=== PATIENT | female | born 1975 | race Caucasian/White ===

== ENCOUNTER 2017-05-31 12:51 | Emergency (ER) | payer MEDICAID, SELFPAY ==
[2017-05-31 12:52] VITALS: BP 129/89; PULSE 88; RESP 16; TEMP 36.1; O2SAT 98; BMI 20.2
--- NOTE | 2017-05-31 13:32 | ED.VISSUMM ---
- ER Visit Summary Date of Service: 05/31/17 Chief Complaint: Headache History of Present Illness: The patient is a 41 F for migraine headaches. States she had a headache for the last 2+ days starting on Monday. Gradual onset diffuse. Associated with photophobia and sonophobia. Denies any trauma. She is on no blood thinners. Denies any fever or neck pain. No sinus congestion. She has had 2 CAT scans last 4 years both of which were negative. This was not a thunderclap headache. There is no family history of intracranial bleeds or aneurysms. She has had similar headaches like this before with her migraines. Physical Examination: Middle-aged female sitting in a darkened room. Vital signs table and afebrile. She is in no distress. Does not look septic or toxic. HEENT exam unremarkable atraumatic. Pupils round reactive light. She is sensitive to light. No facial droop. Normal speech. Neck nontender no meningismus able to touch and chest. Lungs clear to auscultation bilaterally. Heart regular rhythm no murmur. Abdomen soft nontender. She is moving all 4 extremities. Neurovascular intact. Neurologic exam is normal. NIH is 0. Normal speech. No facial droop. External motions are intact. Bilateral 5 out of 5 sliver handler strength. Fingertip to nose within normal limits. Bilateral dorsi plantar flexion. Pxxw-[id number]-fpml within normal limits. Test Results: None Emergency Department Course and Treatment: Patient treated with IV fluids, Toradol and Phenergan. She has reportedly Benadryl allergy. Treatment Plan: Repeat exam at Disposition: Discharge Impression: Cephalgia with a history of migraines This note was generated with [employer] dictation software. It may contain incorrect words, spelling, and punctuation that were not noted in review of the chart prior to signing ED Disposition - Plan for ED Patient: Chief Complaint: Headache Referrals: Rick Conway DO [Primary Care Provider] -
--- NOTE | 2017-05-31 13:35 | ED.DCSUM_ITS ---
- ER Visit Summary Date of Service: 05/31/17 Chief Complaint: Headache History of Present Illness: The patient is a 41 F for migraine headaches. States she had a headache for the last 2+ days starting on Monday. Gradual onset diffuse. Associated with photophobia and sonophobia. Denies any trauma. She is on no blood thinners. Denies any fever or neck pain. No sinus congestion. She has had 2 CAT scans last 4 years both of which were negative. This was not a thunderclap headache. There is no family history of intracranial bleeds or aneurysms. She has had similar headaches like this before with her migraines. Physical Examination: Middle-aged female sitting in a darkened room. Vital signs table and afebrile. She is in no distress. Does not look septic or toxic. HEENT exam unremarkable atraumatic. Pupils round reactive light. She is sensitive to light. No facial droop. Normal speech. Neck nontender no meningismus able to touch and chest. Lungs clear to auscultation bilaterally. Heart regular rhythm no murmur. Abdomen soft nontender. She is moving all 4 extremities. Neurovascular intact. Neurologic exam is normal. NIH is 0. Normal speech. No facial droop. External motions are intact. 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 Fingertip to nose within normal limits. Bilateral dorsi plantar flexion. Kixa-nb-knwn within normal limits. Test Results: None Emergency Department Course and Treatment: Patient treated with IV fluids, Toradol and Phenergan. She has reportedly Benadryl allergy. Treatment Plan: Repeat exam at Disposition: Discharge Impression: Cephalgia with a history of migraines This note was generated with [employer] dictation software. It may contain incorrect words, spelling, and punctuation that were not noted in review of the chart prior to signing ED Disposition - Plan for ED Patient: Chief Complaint: Headache Referrals: Rick Conway DO [Primary Care Provider] -
--- NOTE | 2017-05-31 13:35 | ED.DEP ---
ED Disposition - Plan for ED Patient: Disposition: Home or Assisted Living Chief Complaint: Headache Instructions: ED Headache Migraine Prescriptions: Sumatriptan Succinate [Imitrex] 25 mg PO Q4H PRN PRN #10 tab PRN Reason: Migraine Symptoms Referrals: Rick Conway DO [Primary Care Provider] - 3-5 Days if not improving Additional Instructions: Fluids and rest. Tylenol and Motrin for pain. Possible migraine headaches. Return if feeling worse or not improving.
[2017-05-31] MEDS: 0.9% Normal Saline 1,000 ML 1000 ML IV (13:40)
[2017-05-31] MEDS: proMETHazine 25 MG/ML Syringe 12.5 MG IV (13:41)
[2017-05-31] MEDS: Ketorolac 30 MG/ML Syringe IV (13:41)
[2017-05-31] MEDS: SUMAtriptan 6 MG/0.5 ML Vial SC (15:02)
[2017-05-31 15:05] VITALS: BP 142/95; PULSE 61; RESP 16; O2SAT 98
--- NOTE | 2017-05-31 15:30 | NURSING ---
Addendum entered by Maria Alejandra Moody 05/31/17 15:50: made aware Original Note: pt stating throat feels funny. unsure if throat is very dry or if having a reaction to imitrex. pt no s/s of distress, given some water
--- NOTE | 2017-05-31 15:40 | ED.RN ---
pt states she is fine now and ride is here. MD alanis
== END 2017-05-31 15:50 | disposition home or self-care (01) ==
PROVIDERS: Emergency Provider Emergency Medicine; Family Provider Preventive Medicine Occupational Medicine; PCP Preventive Medicine Occupational Medicine
DX: G43.909 Migraine, unspecified, not intractable, without status migrainosus (principal); F32.9 Major depressive disorder, single episode, unspecified; Z72.0 Tobacco use
CPT/HCPCS: 96361; 96372; 96374; 96375; 99283; J7030; J3030

== ENCOUNTER 2021-03-20 23:19 | Inpatient (IN) | payer MEDICAID, SELFPAY ==
--- NOTE | 2021-03-20 20:28 | US_ITS ---
EXAM: US ABDOMEN LIMITED, RIGHT UPPER QUADRANT CLINICAL INDICATION: abdominal pain TECHNIQUE: Real-time ultrasound of the right upper quadrant with image documentation. This report was created using [employer] report generation technology. COMPARISON: Ultrasound 10/11/2011. FINDINGS: LIVER: Liver is unremarkable. There is normal echotexture. No intrahepatic biliary ductal dilation. GALLBLADDER: Multiple echogenic foci with shadowing at the gallbladder fundus. Pericholecystic fluid. Sonographic George''s sign is reported present. Gallbladder distention with gallbladder sludge present. Gallbladder wall measures 2 mm. COMMON BILE DUCT: Common bile duct is normal. The proximal common bile duct is within normal limits for the patient''s age. PANCREAS: Pancreatic tail is obscured by overlying bowel gas. No pancreatic masses. RIGHT KIDNEY: Right kidney is unremarkable. There is no hydronephrosis. No shadowing calculus. No focal lesion or perinephric collection is demonstrated. OTHER VASCULATURE: Main portal vein demonstrates normal direction of blood flow and is patent. US/Gallbladder IMPRESSION: Cholelithiasis with findings that are suspicious for acute cholecystitis. Electronically Signed: Miguel Saenz MD at 22:34 EST ,
[2021-03-20 21:05] VITALS: BP 137/86; PULSE 81; RESP 18; TEMP 36.4; O2SAT 97
[2021-03-20 21:24] VITALS: BMI 25.1
[2021-03-20] MEDS: 0.9% Normal Saline 1,000 ML 130 ML IV (21:32)
[2021-03-20] MEDS: 0.9% Saline Lock 10 ML Syringe IV (21:36)
[2021-03-20] MEDS: Ondansetron 4 MG/2 ML Vial IV (21:38)
[2021-03-20] MEDS: HYDROmorphone 0.5 MG/0.5 ML SYRINGE IV (21:41)
--- NOTE | 2021-03-20 23:16 | HP.PCM.SX_ITS ---
HPI - General General Date of Admission: 03/20/21 HPI Narrative JENNIFER MAST, is a 45 F who presents initially to [place] ER due to right upper quadrant abdominal pain/epigastric starting 2 days ago. Patient states that yesterday by pain began to get worse did not eat anything since yesterday. Patient has CT abdomen pelvis done which showed distended gallbladder and patient no white blood cell count of 11 at the outside ER. Patient was also given Cipro Flagyl IV due to likely acute cholecystitis. Patient did not have an ultrasound done to see right ear as ultrasound was unavailable at the outside ER. Ultrasound did show gallstones/sludge, distended gallbladder, small amount of pericholecystic fluid normal gallbladder wall. Currently patient states her nausea is better with medication and pain is better if she does not move. [facility] Medical History Anxiety Depression GERD (gastroesophageal reflux disease) Migraine Home Medications bupropion HCl 300 mg PO DAILY 03/20/21 [History Last Taken 03/20/21] omeprazole 40 mg PO DAILY 03/20/21 [History Last Taken 03/20/21] Allergy/AdvReac Type Severity Reaction Status Date / Time bee venom protein (honey bee) Allergy Anaphylaxis Verified 03/20/21 21:21 cephalexin monohydrate Allergy Hives Verified 05/31/17 12:53 [From Keflex] diphenhydramine HCl Allergy Hives Verified 05/31/17 12:53 [From Benadryl] Surgical History History of hysterectomy Hx of tonsillectomy Social History Smoking Status: Former smoker Vital Signs Vital Signs Vital Signs: 03/20/21 20:28 03/20/21 21:05 Temperature 97.5 F L Temperature Source Oral Pulse Rate 81 Respiratory Rate 18 Respiratory Effort Normal Non-Labored Blood Pressure 137/86 H Blood Pressure Mean 103 Blood Pressure Source Monitor Blood Pressure Position Semi-Fowlers Blood Pressure Location Right Arm Pulse Ox 97 Oxygen Delivery Method Room Air Room Air Weight Weight: 155 lb 13.869 oz Body Mass Index (BMI) 25.1 Physical Exam Const alert, oriented x3 and no apparent distress HEENT normocephalic and head/scalp atraumatic Resp normal respiratory effort Cardio regular rate GI soft to palpation; Negative for non-distended Palpation: tender epigastric and RUQ; Negative for guarding Extremity no clubbing, cyanosis or edema Neuro CN's II-XII intact bilaterally Psych mental status grossly normal Results Radiology Impression Gallbladder Ultrasound 03/20/21 20:28 IMPRESSION: Cholelithiasis with findings that are suspicious for acute cholecystitis. Electronically Signed: Miguel Saenz MD at 22:34 EST , ADDENDUM: 03/20/21 2248 IMPRESSION: Cholelithiasis with findings that are suspicious for acute cholecystitis. N.B. : Eleonora Johnson RN, confirmed on 03/20/2021 22:41:46 (ET) that the healthcare facility has received the radiology report. Electronically Signed: Miguel Saenz MD at 22:34 EST , Assessment & Plan Assessment/Plan (1) Acute cholecystitis due to biliary calculus: PLAN: -NPO/IVF -cipro/Flagyl IV -Reviewed the anatomy with the patient and discussed the procedure: laparoscopic cholecystectomy with possible cholangiograms, possible open. Review risks including but not limited to bleeding, infection, hernia, bile leak, retained gallstones requiring another procedure ERCP- Endoscopic Retrograde Cholangiopancreatography, injury to another organ (bile ducts, common bile duct, small bowel, etc.) may require transfer to a tertiary care facility and conversion to an open procedure or laparoscopic subtotal cholecystectomy. All questions were answered. Jaky Kaur M.D. Pager: [phone] [facility] [address] [place] [address], [address] [place] [address] Office: [phone]
[2021-03-20] MEDS: proCHLORPERazine 10 MG/2 ML Vial IV (23:50)
[2021-03-20 23:57] VITALS: BP 118/76; PULSE 88; RESP 18; TEMP 36.5; O2SAT 96
[2021-03-21] VITALS (18 sets, daily range): BP systolic 117–155; BP diastolic 62–96; PULSE 72–98; RESP 14–18; TEMP 36.3–37.1; O2SAT 95–99; BMI 25.1
--- NOTE | 2021-03-21 | GALL_PTH ---
PATIENT: JENNIFER MANDUJANO LOC: MS3 U#:[id number] AGE/SX: 45/F ROOM: MS317 RE03/20/[address]: Dr. Jaky Kaur MD : 1975 BED: 1 DIS: 03/22/2021 SPEC #: [id number] RECD: 03/22/21 07:37 STATUS: JATINDER RERomaine #: [id number] MARTHA: 03/21/21 00:[address]: Jaky Kaur DEPT: SURGICAL PATHOLOGY RECD BY: Raúl Gama ENTERED: 03/22/21 11:24 SP TYPE: ANGELA STARKEY DR: Dr. Nathalie Victor, DO Tissues: Gallbladder, NOS Procedures: Surgery Specimen Level III HEADER OPERATION: Laparoscopic cholecystectomy with IOC PRE-OP DIAGNOSIS: Acute cholecystitis due to biliary calculus TISSUE SUBMITTED: Gallbladder MICROSCOPIC DIAGNOSIS Gallbladder, cholecystectomy: Cholesterolosis, chronic cholecystitis and cholelithiasis. AM:amita 03/23/2021 MICROSCOPIC DESCRIPTION Slides are reviewed. GROSS DESCRIPTION Received is one container labeled with the patient's name and designated gallbladder. The specimen consists of a previously, partially opened gallbladder measuring 8 cm in length and up to 3.5 cm in diameter. The external surface is pink-walters, smooth and glistening for the most part. Focally it is granular, hemorrhagic and contains cautery artifact. The gallbladder contains green-yellow mucoid bile. Present in the container are two mulberry, light yellow stones measuring 0.1 to 0.5 cm in greatest dimension. The mucosa also shows several yellowish streaks consistent with cholesterolosis. The mucosa is bile-stained and without any mass lesions. The gallbladder wall measures up to 0.3 cm in thickness. Sales Estimator sections from the gallbladder and the cystic duct are submitted in one cassette. / SJ:amita 03/22/2021 TC:3 CPT: 04132
--- NOTE | 2021-03-21 05:00 | EKG12_ITS ---
Test Reason : AM EKG Blood Pressure : / mmHG Vent. Rate : 088 BPM Atrial Rate : 088 BPM P-R Int : 180 ms QRS Dur : 088 ms QT Int : 378 ms P-R-T Axes : 044 029 027 degrees QTc Int : 457 ms Normal sinus rhythm Normal ECG Confirmed by NARENDRA CORBETT, KJ ([id number]), telegraph editor JACKY CASAS ([id number]) on 03/23/2021 1:07:32 PM Referred By: WANG Confirmed By:KJ MACKEY MD
[2021-03-21] MEDS: 0.9% Normal Saline 1,000 ML 130 ML IV (05:03)
[2021-03-21] MEDS: metroNIDAZOLE 500 MG/100 ML BAG 100 MG IV (05:04)
[2021-03-21 06:55] LABS: Absolute Neutrophil Count 2.9 X10^3/uL (2.0-7.7); Basophil# 0.05 X10^3/uL; Eosinophil# 0.14 X10^3/uL; Eosinophils% 2.9 % (0-5); Hematocrit 34.6 % (37-47); Hemoglobin 11.4 g/dL (12.0-15.0); Lymphocyte % 26.9 % (19-41); Mean Corp Hgb Conc 32.9 g/dL (32-36); Mean Corpuscular Hgb 28.4 pg (27.0-32.0); Mean Corpuscular Volume 86.3 fL (81-99); Mean Platelet Vol. 10.7 fl (6.2-12.0); Monocyte# 0.46 X10^3/uL; Monocyte% 9.5 % (0-10); NRBC Flagged by Analyzer 0 % (0-5); Neutrophil # 2.88 X10^3/uL (2.7-7.7); Neutrophil % 59.5 % (47-70); Platelet Count 209 K/mm3 (150-450); RBC Distribution Width CV 13.4 % (11.6-14.6); RBC Distribution Width SD 42.1 fl (35.1-43.9); Red Blood Count 4.01 M/mm3 (4.2-5.4); White Blood Count 4.8 K/mm3 (4.4-11.0)
--- NOTE | 2021-03-21 07:23 | NURSING ---
Patient would like her visitor to be her daughter, Roberto Vallecillo.
[2021-03-21 07:29] LABS: AST(SGOT) 13 U/L (15-37); Alanine Aminotransfer ALT/SGPT 19 U/L (13-56); Albumin, Serum 2.9 g/dL (3.2-5.0); Alkaline Phosphatase 111 U/L (45-117); Anion Gap 5 (5-15); BUN 6 mg/dL (7-18); BUN/Creat Ratio 13.7 RATIO (10-20); Bilirubin, Direct 0.13 mg/dL (0.00-0.30); Calcium,Total 8.1 mg/dL (8.5-10.1); Chloride 113 mmol/L (98-107); Creatinine, Serum 0.44 mg/dL (0.55-1.02); EST Glomerular Filtration Rate 166 mL/min (>60); Est Glom Filt Rate - Afr Amer 200 mL/min (>60); Estimated Creatinine Clearance 152.74 ml/min; Globulin 2.6 g/dL (2.2-4.2); Glucose 87 mg/dL (74-106); Potassium 3.5 mmol/L (3.5-5.1); Protein, Total 5.5 g/dL (6.4-8.2); Sodium Level 144 mmol/L (136-145)
[2021-03-21] MEDS: Ondansetron 4 MG/2 ML Vial IV ×2 (08:06→19:48)
[2021-03-21] MEDS: HYDROmorphone 0.5 MG/0.5 ML SYRINGE IV (08:06)
[2021-03-21] MEDS: Ciprofloxacin 400 MG/200 ML BAG 200 MG IV (08:32)
--- NOTE | 2021-03-21 09:00 | RAD_ITS ---
CLINICAL HISTORY: Female, 45 years old. Abdominal pain PROCEDURE: CHOLANGIOGRAM - intraoperative FLUOROSCOPY TIME (if supplied): (0:05) minutes/seconds TECHNIQUE: (All elements of maximal sterile barrier technique followed, including US elements as applicable) 5 seconds of fluoroscopy of the abdomen was utilized and operating room during an intraoperative cholangiogram and 25 images are limited for interpretation. FINDINGS: A cannula seen within the distal cystic duct remnant. Examination the opacified biliary tree demonstrates no evidence of stricture, dilatation, or filling defect to suggest common bile duct stone. There is spillage of contrast through the ampulla into the duodenum. RAD/Cholangiogram/ O R,Initial IMPRESSION: No common bile duct stone. Electronically Signed: Cal Burch MD at 12:44 EST ,
--- NOTE | 2021-03-21 09:44 | PCM.OPRPT ---
Report of Operation Date of Procedure: 03/21/21 Pre-Operative Diagnosis: Acute cholecystitis Post-Operative Diagnosis: Same Surgery/Procedure Performed:: Laparoscopic cholecystectomy with cholangiograms Surgeon: Jaky Kaur signal operator technical: Melissa Maciel Type of Anesthesia: General/Supplemental Anesthesiologist: Binh Basilio Special Medications: Cipro 400 mg IV every 12, Flagyl 500 mg IV every 8 for acute cholecystitis Specimen's removed: Gallbladder and stones Estimated Blood Loss (mL): 20 cc Fluids Replaced: Per anesthesia Description of Procedure: Indications this is a 45 year-old female who developed abdominal pain/nausea/vomiting and on workup was found to have acute cholecystitis due to cholelithiasis, with a normal common bile duct. Laparoscopic cholecystectomy was elected. Description procedure: The patient was placed on operating table in supine position. General Anesthesia was induced. A timeout was completed verifying correct patient, procedure, site, position and special equipment prior to beginning procedure. The abdomen was prepped and draped in usual sterile fashion. An incision was made in the natural skin line above the umbilicus. The fascia was elevated and incised. The peritoneum was elevated and incised. Entry into the peritoneum was confirmed visually and no bowel was noted in the vicinity of the incision. Ramirez trocar was placed. The abdomen was insufflated with carbon dioxide to a pressure of 12-15 mmHg. Patient tolerated insufflation well. The laparoscope was then inserted and abdomen inspected. No injuries from initial trocar placement were noted. Additional trochars were then inserted in the following locations 5 mm trocar in the epigastrium and 2 more 5 mm trochars along the right costal margin. The abdomen was inspected no abnormalities were found. The table is placed in reverse Trendelenburg position with the right side up. The adhesions between the gallbladder and omentum were lysed sharply. The dome of the gallbladder was grasped with atraumatic grasper passed through the lateral port and retracted over the dome of the liver. Infundibulum was then grasped with atraumatic grasper through the midclavicular port and retracted to the right lower quadrant. This maneuver exposed Calot's triangle. The peritoneum overlying the gallbladder infundibulum was then incised and cystic duct and artery identified and circumferentially dissected. Patricio catheter was used for cholangiograms. The cholangiogram showed good filling of the common bile duct into the duodenum with no filling defects, good filling of the right and left bile ducts as well. The cystic duct and artery were then doubly clipped and divided close to the gallbladder. The gallbladder then dissected from its peritoneal attachments by electrocautery. Hemostasis was checked and the gallbladder and contained stones were removed using the endoscopic retrieval bag through the umbilical port. The gallbladder is passed off table as specimen. The gallbladder fossa was copiously irrigated with saline and hemostasis obtained. There is no evidence of bleeding from the gallbladder fossa or cystic artery leakage of bile from the cystic duct stump. Secondary trochars removed under direct vision. No bleeding was noted the trocar sites. The laparoscope was withdrawn and umbilical trocar removed. The abdomen was allowed to collapse. The fascia of the 12 mm trocar was closed with a [id number] 0 Vicryl suture. The skin was closed with sutures of 4-0 Monocryl and Steri-Strips. The orogastric tube was removed and the patient was extubated. The patient tolerated procedure well and was taken to the postanesthesia care unit in stable condition. Complications None
--- NOTE | 2021-03-21 09:54 | EX.PCM.DISCH ---
Discharge Instructions Diet Discharge Diet: Light diet - advance as tolerated Activity Discharge Activity: May Not Drive (while taking narcotic pain medications.) May shower in (days): 1 Lifting Restrictions: no lifting >20 lbs x 2 wks, no strenuous exercise for 4 wks Dressing / Incision Call your doctor if your incision/area has: Continuous Slow Oozing, Sudden Increased Bleeding, Increased Pain/ Swelling, Increased Redness, Foul Smelling Discharge and Swelling at the incision site Call your doctor if you observe: Fever of 101 or Higher Remove Dressing in: 2 days Cleanse incision/area with: Soap & Water Additional Dressing/Incision Instructions:: Steri-Strips will fall off in 7 to 10 days, if they do not fall off okay to remove after 10 days. Follow Up Care Please Follow Up With: Jaky Kaur MD When: Call the office for a follow-up appointment 2 weeks; after 5 PM and on the weekends call [phone] with any concerns. Test Results: Test results from this visit will be discussed in further detail at your follow-up appointment, if applicable. Discharge Plan Admission Admit Date/Time: 03/20/21 23:19 Attending Provider: Jaky Kaur Primary Care Provider: Nathalie Victor Discharge Orders/Prescriptions Prescriptions: New oxycodone-acetaminophen [Percocet] 5-325 mg tablet 1 - 2 tab PO Q6H PRN (Reason: pain) 3 Days Qty: 14 RF: 0 Continued omeprazole 40 mg capsule,delayed release(DR/EC) 40 mg PO DAILY RF: 0 bupropion HCl 300 mg tablet extended release 24 hr 300 mg PO DAILY RF: 0 Referrals / Follow Up: Nathalie Victor DO [Primary Care Provider] - Disposition Disposition (needs filled in before D/C Order can be placed): Home, Self Care
[2021-03-21] MEDS: Lactated Ringers 1,000 ML 125 ML IV ×2 (10:00→14:35)
[2021-03-21] MEDS: proCHLORPERazine 10 MG/2 ML Vial IV (12:40)
[2021-03-21] MEDS: oxyCODONE 5 MG Tablet PO (18:27)
[2021-03-21] MEDS: Morphine 2 MG/ML Syringe IV (19:48)
[2021-03-21] MEDS: Acetaminophen 325 MG Tablet 650 MG PO (22:26)
[2021-03-22 02:00] VITALS: RESP 16
[2021-03-22 03:54] VITALS: BP 130/86; PULSE 92; RESP 16; TEMP 36.7; O2SAT 97
[2021-03-22] MEDS: Acetaminophen 325 MG Tablet 650 MG PO (04:30)
[2021-03-22] MEDS: oxyCODONE 5 MG Tablet PO (04:32)
--- NOTE | 2021-03-22 07:49 | PCM.PN.SRG ---
Subjective Subjective Patient is doing well tolerating diet pain is controlled. Objective Data Objective Data Vital Signs: Vital Signs Temp Pulse Resp BP Pulse Ox 98.1 F 92 16 130/86 H 97 03/22/21 03:54 03/22/21 03:54 03/22/21 03:54 03/22/21 03:54 03/22/21 03:54 Oxygen Flow Rate (L/min) 2 Oxygen Delivery Method Room Air Weight: 155 lb 13.869 oz Body Mass Index (BMI) 25.1 Intake & Output: Intake and Output for Last 24 Hours 03/20/21 03/21/21 03/22/21 23:59 23:59 23:59 Intake Total 2960.09 / 3360.09 1400 / 1400 Output Total 100 / 100 Balance 2860.09 / 3260.09 1400 / 1400 Lab / Micro Data Result Diagrams: 03/21/21 06:30 03/21/21 06:30 Radiography Diagnostic Testing: Radiology Impression Cholangiogram 03/21/21 09:00 IMPRESSION: No common bile duct stone. Electronically Signed: Cal Burch MD at 12:44 EST , Physical Exam Resp normal respiratory effort Cardio regular rate GI GI Narrative: Abdomen: Soft, nondistended, tender near incision's dressed clean dry and intact, no peritoneal signs Assessment & Plan Assessment/Plan (1) S/P laparoscopic cholecystectomy: PLAN: Patient is doing well tolerating diet. Will DC home today.
[2021-03-22 07:53] VITALS: BP 125/83; PULSE 86; RESP 16; TEMP 36.7
== END 2021-03-22 08:04 | disposition home or self-care (01) | DRG 263 ==
PROVIDERS: Admitting Provider Surgery; PCP Family Medicine; Visit Provider Surgery
PROC: 0FT44ZZ Resection of Gallbladder, Percutaneous Endoscopic Approach (ICD-10-PCS; CPT 47610; principal; 2021-03-21 08:00)
DX: K80.00 Calculus of gallbladder with acute cholecystitis without obstruction (principal); F32.A Depression, unspecified; K21.9 Gastro-esophageal reflux disease without esophagitis; K82.8 Other specified diseases of gallbladder; F41.9 Anxiety disorder, unspecified; Z87.891 Personal history of nicotine dependence
CPT/HCPCS: 36415; 74300; 76000; 76705; 80048; 80076; 85025; 88304; 93005; 99251; J7030; J7120; A4216; G0463; J0744; J2405

== ENCOUNTER 2022-08-30 08:17 | Day surgery (SDC) | payer OTHER, SELFPAY ==
[2022-08-30] VITALS (11 sets, daily range): BP systolic 124–155; BP diastolic 75–98; PULSE 73–101; RESP 16; TEMP 36.3–37.2; O2SAT 89–100; BMI 21.2
[2022-08-30] MEDS: Lactated Ringers 1,000 ML 15 ML IV ×2 (08:50→11:16)
--- NOTE | 2022-08-30 09:18 | PCM.HP.BLA ---
History and Physical Date of Admission: 08/30/22 Date of Service: 08/19/22 MR#: [id number] Acct: [id number] Name: JENNIFER MAST Rep #: [id number] : 1975 Provider: Dr. Jaky Kaur MD Age/Sex: 46/F Location: [facility] Status: Signed with Addenda ADDENDUM by Dr. Jaky Kaur MD on 08/19/22 at 1056 Intake Chief Complaint: hernia Allergies bee venom protein (honey bee) Allergy (Verified 08/19/22 08:45) Anaphylaxiscephalexin monohydrate [From Keflex] Allergy (Verified 08/19/22 08:45) Hivesdiphenhydramine HCl [From Benadryl] Allergy (Verified 08/19/22 08:45) Hives Assessment and Plan Assessment and Plan (1) Incisional hernia: Status: Acute 08/19/22 1056 <Electronically signed by Jaky Kaur MD> Date Jaky Kaur MD cc: Dr. Nathalie Victor, DO ~* Signed Intake Vital Signs 03/21/2207:18 08/20/2307:44 Height 5 ft 6 in 5 ft 6 in Weight: 134 lb 2 oz BMI 21.6 BP 156/98 H Blood Pressure Location Rt brachial Position Sitting Respiration 19 H Pulse 105 H Pulse Source Monitor Temp 97.6 F L Temp Source Tympanic Pulse Oximetry (%) 98 Intake Visit Reasons: Umbilical/Incisional hernia Chief Complaint: hernia Allergies bee venom protein (honey bee) Allergy (Verified 08/19/22 08:45) Anaphylaxiscephalexin monohydrate [From Keflex] Allergy (Verified 08/19/22 08:45) Hivesdiphenhydramine HCl [From Benadryl] Allergy (Verified 08/19/22 08:45) Hives [facility] Medical History (Updated 08/19/22 @ 09:[address] Jaky Kaur MD) Anxiety Depression GERD (gastroesophageal reflux disease) Migraine Surgical History (Updated 08/19/22 @ 09:[address] Jaky Kaur MD) History of hysterectomy Hx of tonsillectomy S/P laparoscopic cholecystectomy Social History (Updated 08/19/22 @ 08:43 by Nu Mauro) Smoking Status: Former smoker HPI HPI HPI: 46-year-old female presents due to pain near her umbilicus with nausea and vomiting. Patient states over the last months she has had pain and nausea and vomiting. 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 Patient states by the end of the day working she has increased pain in her abdomen in the area of previous incision supraumbilical. Patient did have a laparoscopic cholecystectomy in March 2022. CT abdomen pelvis was done which shows a small about 5 mm hernia at previous incision site. ROS General General: Yes weight change; No appetite, fatigue, colon cancer or breast cancer HEENT HEENT: No difficulty swallowing, eye injury, eye surgery, swollen glands or hoarseness Endo Endocrine: No thyroid disease, diabetes mellitus, thyroid cancer, Hair loss, heat intolerance or cold intolerance Skin Skin: No rash or changing moles Musc Musculoskeletal: No back problems, arthritis, rheumatoid arthritis, gout or joint pain Cardio Cardiovascular: No murmur, pacemaker, heart disease, atrial fibrillation, high blood pressure, heart attack, heart stent, palpitations, shortness of breat with exertion or chest pain Psych Psychiatric: No depression, anxiety or hearing voices Resp Respiratory: No shortness of breath, No sleep apnea, No cough, No COPD, No asthma, No emphysema and No wheezing Gastro Gastrointestinal: Yes abdominal pain, Yes nausea or vomiting, No diarrhea, No constipation, No blood in stool, Yes acid reflux, No hemorrhoids, No ulcers, No gallbladder problem and No black,tarry stools Mayo Hematologic: No blood thinners, No blood disorders, No bleeding, No anemia and No blood clots Neuro Neurologic: No numbness and No tingling Exam Const General: cooperative, healthy appearing, comfortable and no acute distress [facility] Head: normocephalic and atraumatic Neck Neck: supple Resp Effort & Inspection: normal respiratory effort Cardio Rate: regular rate GI Inspection: non-distended Palpation: soft and nontender Other: Unable to definitively appreciate hernia on exam but seen on CT?patient is quite tender around the previous incision and umbilical area. no PS Skin General: no rashes or lesions noted Neuro General: CN's II-XI intact bilaterally Extrem General: normal to inspection Psych Mental Status: mental status grossly normal Attitude: cooperative Assessment and Plan Assessment and Plan (1) Incisional hernia: Status: Acute Plan Plan to do an incisional hernia pair with mesh. Reviewed the procedure with the patient including the risks, including but not limited to infection, bleeding, injury to the small bowel, and recurrence. All questions were answered. Also written for the patient that she can only work 8-hour shifts at her retirement, which is currently scheduling her for 12 hours. Patient is aware she will be off work for approximately 6 weeks. Jaky Kaur M.D. Pager: [phone] [facility] [address] [place] [address], [address] [place] [address] Office: [phone] Coding Level of Care Code Off vis,est,level 3 Diagnoses Incisional hernia K43.2 08/19/22 1056 <Electronically signed by Jaky Kaur MD> Date Jaky Kaur MD
[2022-08-30] MEDS: Clindamycin 900 MG/50 ML BAG 75 MG IV (09:51)
--- NOTE | 2022-08-30 11:04 | OP.PCM_ITS ---
Report of Operation Date of Procedure: 08/30/22 Pre-Operative Diagnosis: Incisional hernia?supraumbilical Post-Operative Diagnosis: Same Surgery/Procedure Performed:: Open repair of incisional hernia with mesh Surgeon: Jaky Kaur Type of Anesthesia: General/Supplemental Anesthesiologist: Monty Fonseca Special Medications: Clindamycin 900 mg IV x1 Specimen's removed: none Estimated Blood Loss (mL): < 10 cc Description of Procedure: Patient was brought into the room placed supine on the operating table. Correct patient, procedure, site, positioning, special, was verified prior to procedure. General anesthesia was induced. The abdomen was prepped draped in usual sterile fashion. Previous supraumbilical incision was reincised with a 15 blade scalpel. This was deepened with electrocautery. This was deepened to the fascia with electrocautery. Very small hernia defect/weakness was appreciated. This defect was cleared and the hernia defect measured <4mm. Incision was enlarged to accommodate the mesh. Ventralex ST hernia patch 4.3 cm was selected. This was secured laterally at its tails with 0 Prolene horizontal mattress suture. The hernia defect was closed with a [id number] 0 Prolene. The wound was irrigated with saline. Hemostasis was assured. The incision was closed with 3- 0 Vicryl subdermal interrupted sutures and the skin was closed with interrupted 4-0 Monocryl sutures. Steri-Strips and Tegaderm and OpSite. Patient was extubated. Patient tolerated procedure well and was taken to the postanesthesia care unit in stable condition. Complications none
[2022-08-30] MEDS: Bupivacaine Mpf 0.5% 30 ML VIAL (11:07)
--- NOTE | 2022-08-30 11:14 | DCINST_ITS ---
Discharge Instructions Diet Discharge Diet: Light diet - advance as tolerated Activity Discharge Activity: May Not Drive (while taking narcotic pain medications.) May shower in (days): 1 Lifting Restrictions: no lifting >20 lbs x 2 wks, no strenuous exercise for 4 wks Dressing / Incision Call your doctor if your incision/area has: Continuous Slow Oozing, Sudden Increased Bleeding, Increased Pain/ Swelling, Increased Redness, Foul Smelling Discharge and Swelling at the incision site Call your doctor if you observe: Fever of 101 or Higher Remove Dressing in: 2 days Cleanse incision/area with: Soap & Water Additional Dressing/Incision Instructions:: Steri-Strips will fall off in 7 to 10 days, if they do not fall off okay to remove after 10 days. Follow Up Care Please Follow Up With: Jaky Kaur MD When: Call the office for a follow-up appointment 2 weeks; after 5 PM and on the weekends call [phone] with any concerns. Test Results: Test results from this visit will be discussed in further detail at your follow- up appointment, if applicable. Discharge Plan Admission Attending Provider: Jaky Kaur Primary Care Provider: Nathalie Victor Discharge Orders/Prescriptions Prescriptions: New oxycodone-acetaminophen 5-325 mg tablet 1 - 2 tab PO Q6H PRN (Reason: pain) 3 Days Qty: 14 0RF Continued omeprazole 40 mg capsule,delayed release(DR/EC) 40 mg PO DAILY Patient Comments: TAKE 1 CAPSULE BY MOUTH ONCE DAILY ondansetron HCl 4 mg tablet 4 mg PO Q8H PRN (Reason: nausea and vomiting) Qty: 10 0RF Referrals / Follow Up: Nathalie Victor DO [Primary Care Provider] - Disposition Disposition (needs filled in before D/C Order can be placed): Home, Self Care
[2022-08-30] MEDS: oxyCODONE 5 MG Tablet PO (13:58)
[2022-08-30] MEDS: Ketorolac 30 MG/ML Syringe IV (14:20)
== END 2022-08-30 14:35 | disposition home or self-care (01) ==
LOC: SDC 08:17 → AC 08:18
PROVIDERS: PCP Family Medicine; Referring Provider Surgery; Visit Provider Surgery
PROC: (CPT 49593; principal; 2022-08-30 09:15)
DX: K43.2 Incisional hernia without obstruction or gangrene (principal); Z87.891 Personal history of nicotine dependence; R11.2 Nausea with vomiting, unspecified; Z90.49 Acquired absence of other specified parts of digestive tract; Z90.710 Acquired absence of both cervix and uterus
CPT/HCPCS: 49593; 00750; J7120; C1781; J2405

== ENCOUNTER 2023-01-02 12:55 | Day surgery (SDC) | payer OTHER, MEDICAID, SELFPAY ==
[2023-01-02] VITALS (10 sets, daily range): BP systolic 114–137; BP diastolic 78–113; PULSE 82–109; RESP 16–18; TEMP 36.2–36.8; O2SAT 97–100; BMI 20.7
--- NOTE | 2023-01-02 | GASB_PTH ---
PATIENT: JENNIFER MANDUJANO LOC: EN U#:[id number] AGE/SX: 47/F ROOM: RE01/02/[address]: Dr. Jaky Kaur MD : 1975 BED: DIS: 01/02/2023 SPEC #: [id number] RECD: 01/02/23 14:28 STATUS: JATINDER RERomaine #: [id number] MARTHA: 01/02/23 00:[address]: Jaky Kaur DEPT: SURGICAL PATHOLOGY RECD BY: Raúl Gama ENTERED: 01/03/23 08:20 SP TYPE: Gastric Bx LALITO DR: Dr. Nathalie Victor, DO Tissues: A - Gastric mucous membrane B - Gastric mucous membrane Procedures: Special Stain Group II Surgery Specimen Level IV Alcian Blue/PAS (control) HEADER OPERATION: Colonoscopy, EGD with biopsies PRE-OP DIAGNOSIS: GERD, screening TISSUE SUBMITTED: A - Antrum for H. pylori and path, B - Gastroesophageal junction MICROSCOPIC DIAGNOSIS A. Gastric antrum, biopsy: Minimal chronic inflammation. See comment. B. Gastroesophageal junction, biopsy: Chronic inflammation. Goblet cell metaplasia consistent with Roach's esophagus. No evidence of dysplasia. See comment. AM:amita 01/04/2023 COMMENT A. The results of immunohistochemistry for Helicobacter pylori will be reported separately ([id number]). B. Alcian blue/PAS stain with matched control supports the above diagnosis. Immunohistochemistry ([id number]) for P53 and Ki-67 will be performed and results will be reported separately. MICROSCOPIC DESCRIPTION Slides are reviewed. GROSS DESCRIPTION A - Received in fixative is one container labeled with the patient's name and designated antrum biopsy. The specimen consists of one irregular fragment of light walters soft tissue that measures 0.5 x 0.5 x 0.1 cm. The specimen is totally submitted in one cassette. B - Received in fixative is one container labeled with the patient's name and designated GE junction. The specimen consists of one irregular fragment of light walters soft tissue that measures 0.5 x 0.3 x 0.1 cm. The specimen is totally submitted in one cassette. / AM:aimta 01/03/2023 TC:3 CPT: 64648 x2, 62245
--- NOTE | 2023-01-02 | IMM_PTH ---
PATIENT: JENNIFER MANDUJANO LOC: EN U#:[id number] AGE/SX: 47/F ROOM: RE01/02/[address]: Dr. Jaky Kaur MD : 1975 BED: DIS: 01/02/2023 SPEC #: [id number] RECD: 01/03/23 09:22 STATUS: JATINDER REQ #: [id number] MARTHA: 01/02/23 00:[address]: Jaky Kaur DEPT: IMMUNOHISTOCHEMISTRY RECD BY: Lillie Mccormick ENTERED: 01/03/23 09:23 SP TYPE: IMMUNO OTHR DR: Dr. Nathalie Victor, DO Tissues: A - Stomach, NOS B - Gastric mucous membrane Procedures: H Pylori (initial) P53 (initial) KI-67 (add) MOC-31 (add) PHYSICIAN & INSTITUTION [place] [id number] SPECIMEN INFORMATION: Tissue Source: A - Antrum, B - GE junction Clinical Info: GERD, screening Specimen Number: [id number] A & B CPT code: 22811 x2, 77220 x2 METHODOLOGY: Deparaffinized sections of prefer/formalin-fixed tissue or PAP/DQ stained slides are incubated with monoclonal/polyclonal antibodies/oligonucleotide probes. Localization is made via biotin free immunoperoxidase method. Appropriate controls are performed and reacted as expected. Results on target cell population are indicated in the following table: RESULTS: ANTIBODY / CLONE RESULT Block A H Pylori (polyclonal) negative Block B P53 (DO-7) positive wild type Ki-67 (30-9) positive MOC-31 (4561) positive These tests were developed and their performance characteristics determined by [facility]. They may not have been cleared or approved by the U.S. Food and Drug Administration. The FDA has determined that such clearance or approval is not necessary. The above immunohistochemical/dualISH markers are ordered and reviewed by the Pathologist. INTERPRETATION: A. Antrum, biopsy: negative for H pylori B. Gastroesophageal junction, biopsy: No evidence of dysplasia
--- NOTE | 2023-01-02 13:04 | PCM.HP.BLA ---
History and Physical Date of Admission: 01/02/23 Date of Service: 12/19/22 MR#: [id number] Acct: [id number] Name: JENNIFER MAST Rep #: [id number] : 1975 Provider: Dr. Jaky Kaur MD Age/Sex: 47/F Location: [facility] Status: Signed Intake Vital Signs 08/31/2307:31 12/19/2308:30 Height 5 ft 6 in 5 ft 6 in Weight: 134 lb BMI 21.6 BP 128/84 H Blood Pressure Location Rt brachial Position Sitting Respiration 18 Pulse 92 Pulse Source Monitor Temp 97.6 F L Temp Source Temporal Pulse Oximetry (%) 97 Oxygen Delivery Method room air Intake Visit Reasons: UPDATE HPI Chief Complaint: Discuss EGD/C-Scope Training Mgr Required: No Is patient in pain?: No Allergies bee venom protein (honey bee) Allergy (Verified 12/19/22 09:32) Anaphylaxiscephalexin monohydrate [From Keflex] Allergy (Verified 12/19/22 09:32) Hivesdiphenhydramine HCl [From Benadryl] Allergy (Verified 12/19/22 09:32) Hives Medications ondansetron HCl 4 mg tablet 4 mg PO Q8H PRN nausea and vomiting #10 tabs 03/25/21 [Rx Confirmed 12/19/22] pantoprazole 40 mg tablet,delayed release 40 mg PO DAILY #30 tabs 12/19/22 [Rx Confirmed 12/19/22] sucralfate 1 gram tablet 1 g PO QACHS #56 tabs 12/19/22 [Rx Confirmed 12/19/22] PFSH Medical History Anxiety Depression Gastric reflux GERD (gastroesophageal reflux disease) History of stress test Migraine Smoker Wears dentures Surgical History History of hysterectomy History of incisional hernia repair Hx of tonsillectomy S/P laparoscopic cholecystectomy Social History Smoking Status: Current some day smoker tobacco type: cigarettes HPI HPI HPI: 47 year-old female presents for update H&P for EGD and colonoscopy. Patient states she still been having some left upper quadrant burning. Patient did run out of her Protonix as well as Carafate. Patient does drink Mountain Dew daily. Patient does not believe any family history of colon cancer, has bowel movements daily, denies any blood. Patient's never had previous colonoscopy. Patient states her pain was better on the Protonix and Carafate previously. ROS General General: Yes weight change; No appetite, fatigue, colon cancer or breast cancer HEENT HEENT: No difficulty swallowing, eye injury, eye surgery, swollen glands or hoarseness Endo Endocrine: No thyroid disease, diabetes mellitus, thyroid cancer, Hair loss, heat intolerance or cold intolerance Skin Skin: No rash or changing moles Musc Musculoskeletal: No back problems, arthritis, rheumatoid arthritis, gout or joint pain Cardio Cardiovascular: No murmur, pacemaker, heart disease, atrial fibrillation, high blood pressure, heart attack, heart stent, palpitations, shortness of breat with exertion or chest pain Psych Psychiatric: No depression, anxiety or hearing voices Resp Respiratory: No shortness of breath, No sleep apnea, No cough, No COPD, No asthma, No emphysema and No wheezing Gastro Gastrointestinal: Yes abdominal pain, Yes nausea or vomiting, No diarrhea, No constipation, No blood in stool, Yes acid reflux, No hemorrhoids, No ulcers, No gallbladder problem and No black,tarry stools Mayo Hematologic: No blood thinners, No blood disorders, No bleeding, No anemia and No blood clots Neuro Neurologic: No numbness and No tingling Exam Const General: cooperative, healthy appearing, comfortable and no acute distress [facility] Head: normocephalic and atraumatic Neck Neck: supple Resp Effort & Inspection: normal respiratory effort Cardio Rate: regular rate GI Inspection: non-distended Palpation: soft, no hernias and tender in the epigastrum and in the LUQ Skin General: no rashes or lesions noted Neuro General: CN's II-XI intact bilaterally Extrem General: normal to inspection Psych Mental Status: mental status grossly normal Attitude: cooperative Assessment and Plan Assessment and Plan (1) GERD (gastroesophageal reflux disease): Status: Acute (2) Screening for colon cancer: Status: Acute Medications: New pantoprazole 40 mg PO DAILY 30 tabs 5RF sucralfate Take an hour before meals and at bedtime 1 g PO QACHS 56 tabs 0RF Plan We will also refill patient's Protonix and Carafate and also caution patient about drinking caffeinated beverages this that could make her gastritis worse. I have discussed the above with the patient. I have offered the patient esophagogastroduodenoscopy and colonoscopy for evaluation. I have explained the risks/benefits of the procedure and described the procedure. I have discussed the risks with the patient, including but not limited to: infection, bleeding, perforation of the GI tract requiring emergency surgery, inability to complete the procedure, injury to any internal organs, complications of anesthesia, etc. - the patient understands and agrees to proceed. I have answered all the patient's questions to the patient's satisfaction and the patient has no further questions. The patient has been given instructions for the colon cleansing preparation. 1 day of clears, MiraLAX Dulcolax split prep. Jaky Kaur M.D. Pager: [phone] [facility] [address] [place] [address], [address] [place] [address] Office: [phone] Coding Level of Care Code Off vis,est,level 3 Diagnoses GERD (gastroesophageal reflux disease) K21.9 Screening for colon cancer Z12.11 12/19/22 1018 <Electronically signed by Jaky Kaur MD> Date Jaky Kaur MD
[2023-01-02] MEDS: Lactated Ringers 1,000 ML 15 ML IV ×2 (13:13→14:50)
--- NOTE | 2023-01-02 14:24 | OP.CCLET_ITS ---
01/02/2023 Nathalie Real Do Re : Upper GI endoscopy procedure for Nichelle Hercules Dear Farhan This procedure was performed on Monday, January 02, 2023. My impressions and recommendations are as follows: Impressions : - Z-line irregular, 35 cm from the incisors. Biopsied. - Erythematous mucosa in the antrum. Biopsied. - Normal examined duodenum. Recommendations : - Await pathology results. - Discharge patient to home. - Resume previous diet. - Continue present medications. My findings are described in the full procedure note, which is enclosed. If I can be of further assistance, please feel free to contact me at Doctor phone number(s): , Work: . Sincerely, MD Jaky Avitia MD 01/02/2023 2:24:19 PM This report has been signed electronically.
--- NOTE | 2023-01-02 14:24 | OP.EGD_ITS ---
Patient Name: Nichelle Hercules Procedure Date: 01/02/2023 1:49 PM Date of : 1975 Age: 47 Procedure: Upper GI endoscopy Indications: Abdominal pain in the left upper quadrant, Heartburn Providers: Jaky Kaur MD Medicines: Monitored Anesthesia Care Patient Profile: This is a 47 year old female. Complications: No immediate complications. Procedure: Pre-Anesthesia Assessment: - Prior to the procedure, a History and Physical was performed, and patient medications and allergies were reviewed. The patient's tolerance of previous anesthesia was also reviewed. The risks and benefits of the procedure and the sedation options and risks were discussed with the patient. All questions were answered, and informed consent was obtained. Prior Anticoagulants: The patient has taken no anticoagulant or antiplatelet agents. ASA Grade Assessment: Per anesthesia. After reviewing the risks and benefits, the patient was deemed in satisfactory condition to undergo the procedure. After obtaining informed consent, the endoscope was passed under direct vision. Throughout the procedure, the patient's blood pressure, pulse, and oxygen saturations were monitored continuously. The Colonoscope was introduced through the mouth, and advanced to the second part of duodenum. The upper GI endoscopy was accomplished without difficulty. The patient tolerated the procedure well. Scope In: 1:51:00 PM Scope Out: 1:56:59 PM Total Procedure Duration Time 0 hours 5 minutes 59 seconds Findings: The Z-line was irregular and was found 35 cm from the incisors. Biopsies were taken with a cold forceps for histology. Mildly erythematous mucosa without bleeding was found in the gastric antrum. Biopsies were taken with a cold forceps for histology. Biopsies were taken with a cold forceps for [Purpose]. The examined duodenum was normal. The cardia and gastric fundus were normal on retroflexion. Two tongues of salmon-colored mucosa were present from 35 to 38 cm. Biopsies were taken with a cold forceps for histology. Impression: - Z-line irregular, 35 cm from the incisors. Biopsied. - Erythematous mucosa in the antrum. Biopsied. - Normal examined duodenum. Recommendation: - Await pathology results. - Discharge patient to home. - Resume previous diet. - Continue present medications. Procedure Code(s): --- Professional --- 82445, Esophagogastroduodenoscopy, flexible, transoral; with biopsy, single or multiple Diagnosis Code(s): --- Professional --- K22.89, Other specified disease of esophagus K31.89, Other diseases of stomach and duodenum R10.12, Left upper quadrant pain R12, Heartburn CPT copyright 2021 [employer]. All rights reserved. The codes documented in this report are preliminary and upon press tender star signal review may be revised to meet current compliance requirements. MD Jaky Avitia MD 01/02/2023 2:24:19 PM This report has been signed electronically. Number of Addenda: 0 Note Initiated On: 01/02/2023 1:49 PM
--- NOTE | 2023-01-02 14:26 | OP.CCLET_ITS ---
01/02/2023 Nathalie Real Do Re : Colonoscopy procedure for Nichelle Hercules Dear Farhan This procedure was performed on Monday, January 02, 2023. My impressions and recommendations are as follows: Impressions : - Hemorrhoids found on perianal exam. - The entire examined colon is normal on direct and retroflexion views. - No specimens collected. Recommendations : - Discharge patient to home. - Resume previous diet. - Continue present medications. - Repeat colonoscopy in 10 years for screening purposes. My findings are described in the full procedure note, which is enclosed. If I can be of further assistance, please feel free to contact me at Doctor phone number(s): , Work: . Sincerely, MD Jaky Avitia MD 01/02/2023 2:26:17 PM This report has been signed electronically.
--- NOTE | 2023-01-02 14:26 | OP.COLON_ITS ---
Patient Name: Nichelle Hercules Procedure Date: 01/02/2023 1:57 PM Date of : 1975 Age: 47 Procedure: Colonoscopy Indications: Screening for colorectal malignant neoplasm Providers: Jaky Kaur MD Medicines: Monitored Anesthesia Care Patient Profile: This is a 47 year old female. Last Colonoscopy: none. The patient's first colonoscopy is today. Complications: No immediate complications. Procedure: Pre-Anesthesia Assessment: - Prior to the procedure, a History and Physical was performed, and patient medications and allergies were reviewed. The patient's tolerance of previous anesthesia was also reviewed. The risks and benefits of the procedure and the sedation options and risks were discussed with the patient. All questions were answered, and informed consent was obtained. Prior Anticoagulants: The patient has taken no anticoagulant or antiplatelet agents. ASA Grade Assessment: Per anesthesia. After reviewing the risks and benefits, the patient was deemed in satisfactory condition to undergo the procedure. After I obtained informed consent, the scope was passed under direct vision. Throughout the procedure, the patient's blood pressure, pulse, and oxygen saturations were monitored continuously. The Colonoscope was introduced through the anus and advanced to the cecum, identified by the appendiceal orifice, ileocecal valve and palpation. The colonoscopy was performed without difficulty. The patient tolerated the procedure well. The quality of the bowel preparation was good. Scope In: 1:58:07 PM Scope Withdrawal Time 0 hours 11 minutes 38 seconds Scope Out: 2:14:44 PM Total Procedure Duration Time 0 hours 16 minutes 37 seconds Findings: Hemorrhoids were found on perianal exam. The entire examined colon appeared normal on direct and retroflexion views. Impression: - Hemorrhoids found on perianal exam. - The entire examined colon is normal on direct and retroflexion views. - No specimens collected. Recommendation: - Discharge patient to home. - Resume previous diet. - Continue present medications. - Repeat colonoscopy in 10 years for screening purposes. Procedure Code(s): --- Professional --- G0121, PT, Colorectal cancer screening; colonoscopy on individual not meeting criteria for high risk Diagnosis Code(s): --- Professional --- Z12.11, Encounter for screening for malignant neoplasm of colon K64.9, Unspecified hemorrhoids CPT copyright 2021 [employer]. All rights reserved. The codes documented in this report are preliminary and upon superintendent division review may be revised to meet current compliance requirements. MD Jaky Avitia MD 01/02/2023 2:26:17 PM This report has been signed electronically. Number of Addenda: 0 Note Initiated On: 01/02/2023 1:57 PM
--- NOTE | 2023-01-02 14:51 | SUR.PHASEI ---
UPON ARRIVAL TO PACU, PATIENT AWOKE WITH COMPLAINT OF JAW PAIN. STATES THEY HAVE A HISTORY OF TMJ AND THEIR JAW IS VERY PAINFUL AND OUT OF PLACE. WARM BLANKET APPLIED TO B/L JAW. 0.5MG ATIVSN GIVEN, 30MG TORRDOL GIVEN, ORDERS PER ANESTHESIA DOC. DR. PIÑA AND DR. MICHELLE AWARE.
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
== END 2023-01-02 15:31 | disposition home or self-care (01) ==
LOC: EN 12:55 → AC 12:57
PROVIDERS: PCP Family Medicine; Referring Provider Family Medicine; Visit Provider Surgery
PROC: 0DJD8ZZ Inspection of Lower Intestinal Tract, Via Natural or Artificial Opening Endoscopic (ICD-10-PCS; CPT 45378; principal; 2023-01-02 14:10)
DX: Z12.11 Encounter for screening for malignant neoplasm of colon (principal); K21.9 Gastro-esophageal reflux disease without esophagitis; K64.9 Unspecified hemorrhoids; F17.210 Nicotine dependence, cigarettes, uncomplicated; R10.12 Left upper quadrant pain; A35 Other tetanus; K22.89 Other specified disease of esophagus; K31.89 Other diseases of stomach and duodenum
CPT/HCPCS: 43239; 45378; 81002; 88305; 88313; 88341; 88342; 99283; J7120; J2405

== ENCOUNTER 2023-01-02 15:15 | Emergency (ER) | payer MEDICAID, SELFPAY ==
[2023-01-02] VITALS (7 sets, daily range): BP systolic 119–147; BP diastolic 83–99; PULSE 88–93; RESP 15–19; TEMP 37.1; O2SAT 95–98; BMI 23.2
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
--- NOTE | 2023-01-02 15:39 | ED.RN ---
Patient co2 monitor not reading due to jaw being locked open and her mouth breathing. MD Aware
[2023-01-02] MEDS: oxyCODONE 5 MG Tablet PO (16:25)
== END 2023-01-02 16:30 | disposition home or self-care (01) ==
PROVIDERS: Emergency Provider Emergency Medicine; PCP Family Medicine; Visit Provider Emergency Medicine
DX: S03.02XA Dislocation of jaw, left side, initial encounter (principal); F17.210 Nicotine dependence, cigarettes, uncomplicated; K21.9 Gastro-esophageal reflux disease without esophagitis; Z79.899 Other long term (current) drug therapy; Z90.710 Acquired absence of both cervix and uterus; Z90.49 Acquired absence of other specified parts of digestive tract; Z98.890 Other specified postprocedural states; X58.XXXA Exposure to other specified factors, initial encounter; Y93.89 Activity, other specified; Y92.89 Other specified places as the place of occurrence of the external cause
CPT/HCPCS: 21480

== ENCOUNTER → 2023-07-05 | Outpatient (CLI) | payer MEDICAID, SELFPAY ==
[2023-07-05 11:51] LABS: Absolute Lymphocyte Count 2.27 X10^3/uL (0.83-4.51); Absolute Neutrophil Count 7.8 X10^3/uL (2.0-7.7); Basophil# 0.08 X10^3/uL; Basophil% 0.7 % (0-1); Eosinophil# 0.14 X10^3/uL; Eosinophils% 1.3 % (0-5); Hematocrit 41.4 % (37-47); Hemoglobin 13.5 g/dL (12.0-15.0); Lymphocyte # 2.27 X10^3/ul (0.83-4.51); Lymphocyte % 20.9 % (19-41); Mean Corp Hgb Conc 32.6 g/dL (32-36); Mean Platelet Vol. 9.7 fl (6.2-12.0); Monocyte% 5.5 % (0-10); NRBC Flagged by Analyzer 0 % (0-5); Neutrophil # 7.75 X10^3/uL (2.7-7.7); Neutrophil % 71.2 % (47-70); Platelet Count 319 K/mm3 (150-450); RBC Distribution Width CV 13.4 % (11.6-14.6); RBC Distribution Width SD 45.1 fl (35.1-43.9); White Blood Count 10.9 K/mm3 (4.4-11.0)
[2023-07-07 19:07] LABS: Alternaria tenuis <0.10 kU/L (Class 0); Ash, White <0.10 kU/L (Class 0); Aspergillus fumigatus <0.10 kU/L (Class 0); Bermuda Grass <0.10 kU/L (Class 0); Birch <0.10 kU/L (Class 0); Black Walnut <0.10 kU/L (Class 0); Cat Hair / Dander,Stand <0.10 kU/L (Class 0); Cedar, Mountain <0.10 kU/L (Class 0); Cladosporium herbarum <0.10 kU/L (Class 0); Cockroach, American <0.10 kU/L (Class 0); Cottonwood <0.10 kU/L (Class 0); D farinae Mite <0.10 kU/L (Class 0); D pteronyssinus <0.10 kU/L (Class 0); Dog Epithelia <0.10 kU/L (Class 0); Elm, American White <0.10 kU/L (Class 0); Immunoglobulin E 7 IU/mL (6-495); Maple/Box Elder <0.10 kU/L (Class 0); Mouse Urine <0.10 kU/L (Class 0); Mulberry, White <0.10 kU/L (Class 0); Oak, White <0.10 kU/L (Class 0); Pecan <0.10 kU/L (Class 0); Penicillium Notatum <0.10 kU/L (Class 0); Pigweed, Rough <0.10 kU/L (Class 0); Ragweed, Short/Common <0.10 kU/L (Class 0); Russian Thistle <0.10 kU/L (Class 0); Sheep Sorrel <0.10 kU/L (Class 0); Sycamore, American <0.10 kU/L (Class 0); Timothy Grass <0.10 kU/L (Class 0)
[2023-07-09 00:06] LABS: Aspirgillus flavus Negative (Neg:<1:1); Aspirgillus fumigatus Negative (Neg:<1:1); Aspirgillus niger Negative (Neg:<1:1); Immunoglobulin E 6 IU/mL (6-495)
== END | disposition home or self-care (01) ==
LOC: PAVLAB 11:28
PROVIDERS: PCP Family Medicine; Visit Provider Internal Medicine Critical Care Medicine
DX: J44.9 Chronic obstructive pulmonary disease, unspecified (principal); F17.210 Nicotine dependence, cigarettes, uncomplicated
CPT/HCPCS: 36415; 82785; 85025; 86003; 86606

== ENCOUNTER → 2023-07-14 | Outpatient (CLI) | payer MEDICAID, SELFPAY ==
[2023-07-14] MEDS: Methacholine Chloride 18 ml neb kit INHALATION (07:15)
== END | disposition home or self-care (01) ==
LOC: PSN 07:04
PROVIDERS: PCP Family Medicine; Referring Provider Internal Medicine Critical Care Medicine; Visit Provider Internal Medicine Critical Care Medicine
DX: J44.9 Chronic obstructive pulmonary disease, unspecified (principal); F17.210 Nicotine dependence, cigarettes, uncomplicated
CPT/HCPCS: 94070; 95070

== ENCOUNTER 2024-01-18 00:28 | Emergency (ER) | payer SELFPAY ==
[2024-01-18] VITALS (13 sets, daily range): BP systolic 110–175; BP diastolic 75–109; PULSE 87–126; RESP 15–24; TEMP 35.9–36.6; O2SAT 90–99; BMI 24.2
[2024-01-18] MEDS: 0.9% Normal Saline (1000mL) 1,000 ML 999 ML IV (00:52)
[2024-01-18] MEDS: LORazepam 2 MG/ML Syringe 1 MG IV (00:52)
[2024-01-18] MEDS: Morphine 4 MG/ML Syringe IV (00:52)
[2024-01-18] MEDS: Ondansetron 4 MG/2 ML Vial IV (00:52)
[2024-01-18] MEDS: Propofol 200 MG/20 ML Vial IV BOLUS ×2 (01:42→03:32)
[2024-01-18] MEDS: Midazolam 5 MG/ML Syringe IV ×2 (01:44→03:32)
--- NOTE | 2024-01-18 02:12 | CT_ITS ---
EXAM: CT MAXILLOFACIAL WITHOUT INTRAVENOUS CONTRAST CLINICAL INDICATION: jaw dislocation TECHNIQUE: Helically acquired images were obtained of the face without intravenous contrast. This CT exam was performed using one or more of the following dose reduction techniques: automated exposure control, adjustment of the mA and/or kV according to patient size, and/or use of iterative reconstruction technique. RADIATION DOSE: CTDIvol = 29.38 mGy, DLP = 657.65 mGy-cm COMPARISON: No relevant prior studies available. FINDINGS: BONES/JOINTS: There is anterior dislocation of the right mandibular condyle from the temporomandibular fossa. The left temporomandibular joint is intact. No displaced fracture. No discrete lytic or blastic abnormalities. SOFT TISSUES: Unremarkable. No focal subcutaneous swelling. No discrete fluid collections. ORBITS: Unremarkable. Both globes are unremarkable. Extraocular muscles are normal. Retrobulbar fat appears unremarkable. SINUSES: Unremarkable as visualized. Clear. MASTOID AIR CELLS: Unremarkable as visualized. Clear. DENTAL: No acute findings. No periodontal osseous erosion. CT/Sinus/Facial Bone IMPRESSION: There is anterior dislocation of the right mandibular condyle from the temporomandibular fossa. The left temporomandibular joint is intact. No fractures. Electronically Signed: Watson Duval MD at 2:55 EST ,
--- NOTE | 2024-01-18 02:22 | EDS_ITS ---
HPI History of Present Illness Chief Complaint: Dislocation Informant: patient and family Narrative Narrative: Patient is a 48-year-old female with past medical history of COPD anxiety depression GERD and recent stroke causing left-sided deficit. She also has a h istory of jaw dislocation. Patient states she was sleeping and then awoke secondary to pain in her mouth/jaw. She states it is very difficult to open and close her mouth secondary to pain and the fact that it feels stuck. She states this feels very similar nature to her last dislocation. She denies any difficulty breathing or swallowing and she denies any recent trauma but with concern for jaw dislocation she presents for evaluation [facility] Medical History Stroke Skin cancer (melanoma) Wears dentures Gastric reflux Smoker History of stress test Migraine Anxiety Depression GERD (gastroesophageal reflux disease) Home Medications ?Medication ?Instructions ?Recorded ?Last Taken ?Type pantoprazole 40 mg tablet,delayed 40 mg PO DAILY #30 tabs 12/19/22 Unknown Rx release sucralfate 1 gram tablet 1 g PO QACHS #56 tabs 12/19/22 Unknown Rx ondansetron 4 mg disintegrating 4 mg PO Q8H PRN PRN Nausea #10 tabs 01/02/23 Unknown Rx tablet albuterol sulfate 90 mcg/actuation 2 puff inhalation Q4H PRN 07/05/23 Unknown Rx aerosol inhaler shortness of breath or wheezing #8.5 grams nicotine 14 mg/24 hr daily 1 patch transdermal DAILY #28 ea 07/05/23 Unknown Rx transdermal patch nicotine 7 mg/24 hr daily 1 patch transdermal Q24H #14 ea 07/05/23 Unknown Rx transdermal patch oxycodone-acetaminophen 5 mg-325 1 tab PO Q6H PRN pain 3 days #12 01/18/24 Unknown Rx mg tablet (Percocet) tabs Allergy/AdvReac Type Severity Reaction Status Date / Time bee venom protein (honey bee) Allergy Anaphylaxis Verified 01/18/24 00:32 cephalexin monohydrate (From Allergy Hives Verified 01/18/24 00:32 Keflex) diphenhydramine HCl (From Allergy Hives Verified 01/18/24 00:32 Benadryl) Surgical History H/O melanoma excision Hx of hernia repair History of incisional hernia repair S/P laparoscopic cholecystectomy Hx of tonsillectomy History of hysterectomy Social History (Updated 07/05/23 @ 10:47 by Giuliana Pritchett) Smoking Status: Current every day smoker tobacco type: cigarettes ROS ROS ED Constitutional Constitutional ED: Denies chills or fever(s) Eyes Eyes: Denies change in vision ENT ENT ED: Reports other Details: Positive jaw pain/dislocation ; Denies sore throat Cardiovascular Cardiovascular: Denies chest pain Respiratory/Chest Respiratory/Chest: Denies cough or dyspnea Gastrointestinal Gastrointestinal: Denies abdominal pain, diarrhea, nausea or vomiting Genitourinary Genitourinary ED: Reports dysuria Musculoskeletal Musculoskeletal: Denies neck pain Integumentary Denies rash Neurologic Neurologic: Denies headache(s) Hematologic/Lymphatic Hematologic/Lymphatic: Denies easy bleeding or easy bruising Allergic/Immunologic Allergic/Immunologic ED: Denies mouth swelling or tongue swelling EXAM Physical Exam Const Vital Signs: 01/18/24 00:29 01/18/24 01:12 01/18/24 01:40 Temperature 96.7 F L Temperature Source Temporal Pulse Rate 110 H 90 Pulse Rate [1 (Initial Baseline)] Pulse Rate [10] Pulse Rate [2] Pulse Rate [4] Pulse Rate [6] Pulse Rate [7] Pulse Rate [8] Pulse Rate [9] Respiratory Rate 15 17 Respiratory Rate [1 (Initial Baseline)] Respiratory Rate [10] Respiratory Rate [2] Respiratory Rate [4] Respiratory Rate [6] Respiratory Rate [7] Respiratory Rate [8] Respiratory Rate [9] Blood Pressure 140/88 H 140/89 H Blood Pressure [1 (Initial Baseline)] Blood Pressure [10] Blood Pressure [2] Blood Pressure [4] Blood Pressure [6] Blood Pressure [7] Blood Pressure [8] Blood Pressure [9] Blood Pressure Mean 105 Pulse Ox 97 92 Oxygen Delivery Method Room Air Room Air Oxygen Delivery Method [1 (Initial Baseline)] Oxygen Delivery Method [10] Oxygen Delivery Method [2] Oxygen Delivery Method [4] Oxygen Delivery Method [5] Oxygen Delivery Method [6] Oxygen Delivery Method [7] Oxygen Delivery Method [8] Oxygen Delivery Method [9] Oxygen Flow Rate (L/min) [1 (Initial Baseline)] Oxygen Flow Rate (L/min) [10] Oxygen Flow Rate (L/min) [2] Oxygen Flow Rate (L/min) [4] Oxygen Flow Rate (L/min) [5] Oxygen Flow Rate (L/min) [6] Oxygen Flow Rate (L/min) [7] Oxygen Flow Rate (L/min) [8] Oxygen Flow Rate (L/min) [9] EtCo2 (Normal 35-45 , high quality CPR 10-20 & ROSC>/=40mmHg 42 EtCo2 (Normal 35-45 , high quality CPR 10-20 & ROSC>/=40mmHg [1 (Initial Baseline)] EtCo2 (Normal 35-45 , high quality CPR 10-20 & ROSC>/=40mmHg [10] EtCo2 (Normal 35-45 , high quality CPR 10-20 & ROSC>/=40mmHg [2] EtCo2 (Normal 35-45 , high quality CPR 10-20 & ROSC>/=40mmHg [4] EtCo2 (Normal 35-45 , high quality CPR 10-20 & ROSC>/=40mmHg [6] EtCo2 (Normal 35-45 , high quality CPR 10-20 & ROSC>/=40mmHg [7] EtCo2 (Normal 35-45 , high quality CPR 10-20 & ROSC>/=40mmHg [8] EtCo2 (Normal 35-45 , high quality CPR 10-20 & ROSC>/=40mmHg [9] 01/18/24 01:42 01/18/24 02:11 01/18/24 02:16 Temperature Temperature Source Pulse Rate Pulse Rate [1 (Initial Baseline)] 90 Pulse Rate [10] 114 H Pulse Rate [2] 99 Pulse Rate [4] 98 Pulse Rate [6] 105 H Pulse Rate [7] 116 H Pulse Rate [8] 117 H Pulse Rate [9] 114 H Respiratory Rate Respiratory Rate [1 (Initial Baseline)] 16 Respiratory Rate [10] 24 H Respiratory Rate [2] 17 Respiratory Rate [4] 17 Respiratory Rate [6] 22 H Respiratory Rate [7] 18 Respiratory Rate [8] 21 H Respiratory Rate [9] 22 H Blood Pressure Blood Pressure [1 (Initial Baseline)] 147/83 H Blood Pressure [10] 110/93 H Blood Pressure [2] 141/107 H Blood Pressure [4] 148/106 H Blood Pressure [6] 129/94 H Blood Pressure [7] 158/86 H Blood Pressure [8] 174/93 H Blood Pressure [9] 174/93 H Blood Pressure Mean Pulse Ox Oxygen Delivery Method Room Air Room Air Oxygen Delivery Method [1 (Initial Baseline)] Nasal Cannula Oxygen Delivery Method [10] Nasal Cannula Oxygen Delivery Method [2] Nasal Cannula Oxygen Delivery Method [4] Nasal Cannula Oxygen Delivery Method [5] Nasal Cannula Oxygen Delivery Method [6] Nasal Cannula Oxygen Delivery Method [7] Nasal Cannula Oxygen Delivery Method [8] Nasal Cannula Oxygen Delivery Method [9] Nasal Cannula Oxygen Flow Rate (L/min) [1 (Initial Baseline)] 4 Oxygen Flow Rate (L/min) [10] 4 Oxygen Flow Rate (L/min) [2] 4 Oxygen Flow Rate (L/min) [4] 4 Oxygen Flow Rate (L/min) [5] 4 Oxygen Flow Rate (L/min) [6] 4 Oxygen Flow Rate (L/min) [7] 4 Oxygen Flow Rate (L/min) [8] 4 Oxygen Flow Rate (L/min) [9] 4 EtCo2 (Normal 35-45 , high quality CPR 10-20 & ROSC>/=40mmHg 37 42 EtCo2 (Normal 35-45 , high quality CPR 10-20 & ROSC>/=40mmHg [1 (Initial Baseline)] 40 EtCo2 (Normal 35-45 , high quality CPR 10-20 & ROSC>/=40mmHg [10] 42 EtCo2 (Normal 35-45 , high quality CPR 10-20 & ROSC>/=40mmHg [2] 35 EtCo2 (Normal 35-45 , high quality CPR 10-20 & ROSC>/=40mmHg [4] 46 EtCo2 (Normal 35-45 , high quality CPR 10-20 & ROSC>/=40mmHg [6] 41 EtCo2 (Normal 35-45 , high quality CPR 10-20 & ROSC>/=40mmHg [7] 42 EtCo2 (Normal 35-45 , high quality CPR 10-20 & ROSC>/=40mmHg [8] 42 EtCo2 (Normal 35-45 , high quality CPR 10-20 & ROSC>/=40mmHg [9] 43 01/18/24 02:21 01/18/24 02:28 01/18/24 03:30 Temperature Temperature Source Pulse Rate 107 H 87 Pulse Rate [1 (Initial Baseline)] Pulse Rate [10] Pulse Rate [2] Pulse Rate [4] Pulse Rate [6] Pulse Rate [7] Pulse Rate [8] Pulse Rate [9] Respiratory Rate 18 16 Respiratory Rate [1 (Initial Baseline)] Respiratory Rate [10] Respiratory Rate [2] Respiratory Rate [4] Respiratory Rate [6] Respiratory Rate [7] Respiratory Rate [8] Respiratory Rate [9] Blood Pressure 124/85 H 127/83 H Blood Pressure [1 (Initial Baseline)] Blood Pressure [10] Blood Pressure [2] Blood Pressure [4] Blood Pressure [6] Blood Pressure [7] Blood Pressure [8] Blood Pressure [9] Blood Pressure Mean 98 Pulse Ox 94 98 Oxygen Delivery Method Room Air Room Air Room Air Oxygen Delivery Method [1 (Initial Baseline)] Oxygen Delivery Method [10] Oxygen Delivery Method [2] Oxygen Delivery Method [4] Oxygen Delivery Method [5] Oxygen Delivery Method [6] Oxygen Delivery Method [7] Oxygen Delivery Method [8] Oxygen Delivery Method [9] Oxygen Flow Rate (L/min) [1 (Initial Baseline)] Oxygen Flow Rate (L/min) [10] Oxygen Flow Rate (L/min) [2] Oxygen Flow Rate (L/min) [4] Oxygen Flow Rate (L/min) [5] Oxygen Flow Rate (L/min) [6] Oxygen Flow Rate (L/min) [7] Oxygen Flow Rate (L/min) [8] Oxygen Flow Rate (L/min) [9] EtCo2 (Normal 35-45 , high quality CPR 10-20 & ROSC>/=40mmHg EtCo2 (Normal 35-45 , high quality CPR 10-20 & ROSC>/=40mmHg [1 (Initial Baseline)] EtCo2 (Normal 35-45 , high quality CPR 10-20 & ROSC>/=40mmHg [10] EtCo2 (Normal 35-45 , high quality CPR 10-20 & ROSC>/=40mmHg [2] EtCo2 (Normal 35-45 , high quality CPR 10-20 & ROSC>/=40mmHg [4] EtCo2 (Normal 35-45 , high quality CPR 10-20 & ROSC>/=40mmHg [6] EtCo2 (Normal 35-45 , high quality CPR 10-20 & ROSC>/=40mmHg [7] EtCo2 (Normal 35-45 , high quality CPR 10-20 & ROSC>/=40mmHg [8] EtCo2 (Normal 35-45 , high quality CPR 10-20 & ROSC>/=40mmHg [9] 01/18/24 03:47 Temperature Temperature Source Pulse Rate 104 H Pulse Rate [1 (Initial Baseline)] Pulse Rate [10] Pulse Rate [2] Pulse Rate [4] Pulse Rate [6] Pulse Rate [7] Pulse Rate [8] Pulse Rate [9] Respiratory Rate 19 H Respiratory Rate [1 (Initial Baseline)] Respiratory Rate [10] Respiratory Rate [2] Respiratory Rate [4] Respiratory Rate [6] Respiratory Rate [7] Respiratory Rate [8] Respiratory Rate [9] Blood Pressure 138/92 H Blood Pressure [1 (Initial Baseline)] Blood Pressure [10] Blood Pressure [2] Blood Pressure [4] Blood Pressure [6] Blood Pressure [7] Blood Pressure [8] Blood Pressure [9] Blood Pressure Mean 107 Pulse Ox 93 Oxygen Delivery Method Room Air Oxygen Delivery Method [1 (Initial Baseline)] Oxygen Delivery Method [10] Oxygen Delivery Method [2] Oxygen Delivery Method [4] Oxygen Delivery Method [5] Oxygen Delivery Method [6] Oxygen Delivery Method [7] Oxygen Delivery Method [8] Oxygen Delivery Method [9] Oxygen Flow Rate (L/min) [1 (Initial Baseline)] Oxygen Flow Rate (L/min) [10] Oxygen Flow Rate (L/min) [2] Oxygen Flow Rate (L/min) [4] Oxygen Flow Rate (L/min) [5] Oxygen Flow Rate (L/min) [6] Oxygen Flow Rate (L/min) [7] Oxygen Flow Rate (L/min) [8] Oxygen Flow Rate (L/min) [9] EtCo2 (Normal 35-45 , high quality CPR 10-20 & ROSC>/=40mmHg EtCo2 (Normal 35-45 , high quality CPR 10-20 & ROSC>/=40mmHg [1 (Initial Baseline)] EtCo2 (Normal 35-45 , high quality CPR 10-20 & ROSC>/=40mmHg [10] EtCo2 (Normal 35-45 , high quality CPR 10-20 & ROSC>/=40mmHg [2] EtCo2 (Normal 35-45 , high quality CPR 10-20 & ROSC>/=40mmHg [4] EtCo2 (Normal 35-45 , high quality CPR 10-20 & ROSC>/=40mmHg [6] EtCo2 (Normal 35-45 , high quality CPR 10-20 & ROSC>/=40mmHg [7] EtCo2 (Normal 35-45 , high quality CPR 10-20 & ROSC>/=40mmHg [8] EtCo2 (Normal 35-45 , high quality CPR 10-20 & ROSC>/=40mmHg [9] Positive well nourished and well developed General Appearance ED: well developed; Negative for pallor HEENT Reports moist mucous membranes HEENT Narrative: No tongue or lip swelling no oral lesions no airway edema or compromise No signs of infection noted in the posterior pharynx The patient does have an abnormal placement of her mandible angulated with the right lower jaw sitting at an abnormal lie/angle compared to left. Patient cannot actively open and close and there is no passive motion either consistent with jaw dislocation. Eyes PERRL and EOMs intact bilaterally General Eye ED: Negative for scleral icterus Neck supple Resp normal respiratory effort and clear to auscultation bilaterally Cardio regular rate and regular rhythm Extremity normal to inspection Neuro oriented x3 Neuro Narrative: Patient has a left sided arm weakness consistent with recent stroke however there are no new or focal findings at this time Sensorium / Orientation: alert Psych mental status grossly normal Skin no rashes or lesions noted and no wounds General Skin Exam: Negative for jaundice or pallor MDM MDM MDM Narrative Medical decision making narrative: Patient presented to the ER in no acute distress. She reported waking with jaw pain and difficulty opening and closing her mouth. Her history and exam is consistent with jaw dislocation. Without report or signs of trauma I have low concern for bony fracture and her physical exam does not show any signs of infection such as strep pharyngitis ANUG or peritonsillar abscess. Patient was given IV morphine and Ativan and then a tongue depressor was used to induce a gag response and the patient. Hoping that the gag motion would cause spontaneous relocation. This was unsuccessful. Therefore the patient underwent conscious sedation as documented below The patient was given a total of 200 mg of propofol and 5 mg of Versed and traction was applied to the lower mandible there is seem to be spontaneous improvement along the left mandibular joint space but there is still difficulty getting the right in place. Total approximate sedation time of 35 minutes. As patient had undergone a total approximate sedation time of 35 minutes without improvement of her dislocation I did elect to stop the procedure at that time and send for a CT of the face in order to ensure there was no fracture or mass preventing relocation. The CT scan confirmed there was persistent right jaw dislocation and this was anterior in nature. Therefore the patient underwent a second conscious sedation as document below For the second conscious sedation patient was given a total of 100 mg of propofol and 2.5 mg of Versed. Traction was applied to the lower jaw and then force was directed posteriorly. There was spontaneous reduction of the jaw dislocation. After this occurred the patient was able to open and close without difficulty. In order to ensure there was no spontaneous dislocation once again the patient had her face/jaw wrapped in an Jt wrap. Second total conscious sedation time of approximately 10 minutes. Patient tolerated both conscious sedation's without difficulty and now that her jaw has been relocated she is otherwise safe for discharge History & Record Review Discussion w/independent historian: Patient and Family Radiography Diagnostic Testing: Clinical Impression(s) from Imaging Studies Facial/Sinus 01/18/24 02:12 IMPRESSION: There is anterior dislocation of the right mandibular condyle from the temporomandibular fossa. The left temporomandibular joint is intact. No fractures. Electronically Signed: Watson Duval MD at 2:55 EST , Procedures Procedural Sedation 1 (Initial Baseline): Consent Signed: Yes Any Problems With Anesthesia: No You/Your family experience fever (hyperthermia) w/anesthesia: No Sedation medication: Propofol (5 mg of Versed was also used) Dose: 200 Route: IV Maliampati Score: Class II ASA Classification: II Discharge Plan Triage Chief Complaint: Dislocation ED Provider: Miguel Villanueva Dx/Rx/DC Orders Clinical Impression: Dislocation of jaw, COPD (chronic obstructive pulmonary disease), GERD (gastroesophageal reflux disease), History of CVA (cerebrovascular accident) Instructions: ED Jaw Dislocation Prescriptions: New oxycodone-acetaminophen [Percocet] 5-325 mg tablet 1 tab PO Q6H PRN (Reason: pain) 3 Days Qty: 12 0RF No Action sucralfate 1 gram tablet 1 g PO QACHS Qty: 56 0RF Rx Instructions: Take an hour before meals and at bedtime pantoprazole 40 mg tablet,delayed release (DR/EC) 40 mg PO DAILY Qty: 30 5RF albuterol sulfate 90 mcg/actuation HFA aerosol inhaler 2 puff inhalation Q4H PRN (Reason: shortness of breath or wheezing) Qty: 8.5 3RF Rx Instructions: administer with spacer nicotine 14 mg/24 hr patch 24 hour 1 patch transdermal DAILY Qty: 28 0RF nicotine 7 mg/24 hr patch 24 hour 1 patch transdermal Q24H Qty: 14 0RF ondansetron [ondansetron] 4 mg tablet,disintegrating 4 mg PO Q8H PRN PRN (Reason: Nausea) Qty: 10 0RF Primary Care Provider: Nathalie Victor Referrals: Nathalie Victor DO [Primary Care Provider] - JSOE DOMINGUEZ MD [Non-Staff] - Activity Restrictions/Additional Instructions: Please follow-up with oral surgery as you may need a surgical procedure secondary to the fact you have dislocated your jaw multiple times. Continue all of your home medications as directed by your doctor and take the prescribed pain medication if needed for continued pain. Return to the ER should you have any further concerns Print Language: Danish Disposition Disposition: Home, Self Care
== END 2024-01-18 04:33 | disposition home or self-care (01) ==
PROVIDERS: Emergency Provider Emergency Medicine; PCP Family Medicine; Visit Provider Emergency Medicine
DX: S03.01XA Dislocation of jaw, right side, initial encounter (principal); I69.334 Monoplegia of upper limb following cerebral infarction affecting left non-dominant side; J44.9 Chronic obstructive pulmonary disease, unspecified; X58.XXXA Exposure to other specified factors, initial encounter; F41.9 Anxiety disorder, unspecified; F32.A Depression, unspecified; K21.9 Gastro-esophageal reflux disease without esophagitis; F17.210 Nicotine dependence, cigarettes, uncomplicated; Z88.1 Allergy status to other antibiotic agents; Z85.820 Personal history of malignant melanoma of skin
CPT/HCPCS: 21480; 70486; 96361; 96374; 96375; 96376; 99152; 99284; A4216; J2405

== ENCOUNTER 2024-01-21 18:17 | Observation (INO) | payer SELFPAY ==
[2024-01-21] VITALS (8 sets, daily range): BP systolic 131–157; BP diastolic 88–108; PULSE 80–104; RESP 16–25; TEMP 36.3–36.4; O2SAT 92–100; BMI 23.3; BMI 23.7
--- NOTE | 2024-01-21 18:19 | EKG12_ITS ---
Test Reason : NEURO Blood Pressure : */* mmHG Vent. Rate : 96 BPM Atrial Rate : 96 BPM P-R Int : 158 ms QRS Dur : 86 ms QT Int : 346 ms P-R-T Axes : 35 43 51 degrees QTcB Int : 437 ms Normal sinus rhythm Normal ECG Confirmed by KAY CORBETT, OLEG ([id number]), movie editor JACKY CASAS ([id number]) on 01/24/2024 6:28:13 AM Referred By: Confirmed By: OLEG VILLANUEVA MD
--- NOTE | 2024-01-21 18:19 | CT_ITS ---
We are attempting to reach an attending provider to discuss findings. An addendum with communication details will be sent when the communication is complete. STUDY: CT BRAIN WITHOUT CONTRAST REASON FOR EXAM: Female, 48 years old. Neuro deficit, acute, stroke suspected TECHNIQUE: Transaxial CT imaging of the brain was performed without administration of intravenous contrast material. Individualized dose optimization techniques were used for this CT. COMPARISON: 03.05.13 FINDINGS: Normal calvarium. Normal soft tissues. Normal size ventricles and extra-axial spaces for the patient''s age. Normal white matter tracts of the cerebral hemispheres. Normal brainstem. Normal cerebellum. There is no intracranial hemorrhage. There is a focus of low-density in the right basal ganglia. This is concerning for of an acute ischemic infarction. Normal visualized paranasal sinuses. ASPECTS 10/16 CT/STROKE Brain/Head without Cont IMPRESSION: There is a focus of low-density in the right basal ganglia. This is concerning for of an acute ischemic infarction. Electronically Signed: Watson Madrid MD at 18:33 EST ,
--- NOTE | 2024-01-21 18:19 | CT_ITS ---
We are attempting to reach an attending provider to discuss findings. An addendum with communication details will be sent when the communication is complete. STUDY: CTA OF THE BRAIN REASON FOR EXAM: Female, 48 years old. Neuro deficit, acute, stroke suspected TECHNIQUE: CT angiography was performed with a multi-detector CT scanner. Data acquisition was obtained from the skull base through the vertex following intravenous administration of IV 100mL Isovue-370 contrast. MIP images were reconstructed from the axial data set. Post-processing of the angiographic images was performed, with multiplanar reformation and 3D reconstruction. MIPS images were obtained. Analyzed with [employer]. Individualized dose optimization techniques were used for this CT. COMPARISON: None. FINDINGS: Normal bilateral petrous carotid arteries. There is calcified plaque formation of the right cavernous carotid artery, with a mild stenosis (less than 50%). There is calcified plaque formation of the left cavernous carotid artery, with a mild stenosis (less than 50%). Normal right A1 segments of the anterior cerebral artery. Normal left A1 segments of the anterior cerebral artery. Normal intact anterior communicating artery (ACOM). Normal bilateral A2 segments of the anterior cerebral arteries. Normal right M1 and M2 segments of the middle cerebral arteries, with a normal M1 bifurcation. Normal left M1 and M2 segments of the middle cerebral arteries, with a normal M1 bifurcation. Normal right posterior communicating artery (PCOM). Normal left posterior communicating artery (PCOM). Normal bilateral vertebral arteries. Normal basilar artery with a normal basilar bifurcation. The visualized bilateral superior cerebellar (SCA) arteries are normal. Normal bilateral P1, P2 and visualized P3 segments of the posterior cerebral arteries. There is no demonstrated aneurysm of the [place]. There is no demonstrated abnormality of the visualized brain. IMPRESSION: Normal [place] without a demonstrated aneurysm or hemodynamically significant stenosis. ALL ABOVE CRITERIA BY NASCET. STUDY: CTA NECK WITH CONTRAST REASON FOR EXAM: Female, 48 years old. Neuro deficit, acute, stroke suspected Individualized dose optimization techniques were used for this CT. TECHNIQUE: CT angiography with multi-detector data acquisition was performed from the aortic arch to the skull base following intravenous administration of IV 100mL Isovue-370 contrast. MIP images were reconstructed from the axial data set. Post-processing of the angiographic images was performed, with multiplanar reformation and 3D reconstruction. Analyzed with [email or web address] COMPARISON: None. FINDINGS: The thyroid is heterogenous. It contains nodules. This should be further evaluated with ultrasound. This can be performed as an outpatient. AORTIC ARCH: There is atherosclerotic calcific plaque formation of the aortic arch and great vessels arising from the aortic arch, without a hemodynamically significant stenosis. There is a normal origin of the brachiocephalic, left common carotid, and left subclavian arteries. Normal origins of the brachiocephalic, left common carotid, and left subclavian arteries. RIGHT CAROTID ARTERIES: Normal right common carotid artery (CCA). Normal right common carotid bulb. There is mild atherosclerotic plaque formation of the origin of the right internal carotid artery with less than 50% cross sectional diameter stenosis. Normal visualized cervical portion of the right internal carotid artery. Normal origin of the right external carotid artery (ECA). LEFT CAROTID ARTERIES: Normal left common carotid artery (CCA). Normal left common carotid bulb. There is mild atherosclerotic plaque formation of the origin of the left internal carotid artery with less than 50% cross sectional diameter stenosis. Normal visualized cervical portion of the left internal carotid artery. Normal origin of the left external carotid artery (ECA). VERTEBRAL ARTERIES: Normal bilateral vertebral arteries. CT/STROKE CTA Head AND Neck W/Con IMPRESSION: Normal bilateral cervical carotid and vertebral arteries. ALL ABOVE CRITERIA BY NASCET. Electronically Signed: Watson Madrid MD at 18:43 EST Reading Location ID and State: [facility] / [place] , Service support ,
--- NOTE | 2024-01-21 18:21 | ED.VIS.STROK ---
HPI History of Present Illness Chief Complaint: Stroke Alert Informant: patient and family Narrative Narrative: 48-year-old female that states she was just discharged from the hospital after having had a left-sided stroke that affected her arm and leg and her balance, now states about 20 minutes prior to arrival she was having a verbal argument with her daughter when she started having right-sided weakness and discomfort in her hand and paresthesias and more trouble with balance and more trouble with her speech. No injury. No fever. She has had nausea since she was discharged in the hospital that is no different. Denies headache. No changes in her vision. [facility] Medical History Stroke Skin cancer (melanoma) Wears dentures Gastric reflux Smoker History of stress test Migraine Anxiety Depression GERD (gastroesophageal reflux disease) Home Medications ?Medication ?Instructions ?Recorded ?Last Taken ?Type pantoprazole 40 mg tablet,delayed 40 mg PO DAILY #30 tabs 12/19/22 Unknown Rx release sucralfate 1 gram tablet 1 g PO QACHS #56 tabs 12/19/22 Unknown Rx albuterol sulfate 90 mcg/actuation 2 puff inhalation Q4H PRN 07/05/23 Unknown Rx aerosol inhaler shortness of breath or wheezing #8.5 grams aspirin 81 mg chewable tablet 1 tab PO DAILY 01/21/24 Unknown History atorvastatin 40 mg tablet 40 mg PO DAILY 01/21/24 Unknown History clopidogrel 75 mg tablet 75 mg PO DAILY 01/21/24 Unknown History Allergy/AdvReac Type Severity Reaction Status Date / Time bee venom protein (honey bee) Allergy Anaphylaxis Verified 01/18/24 00:32 cephalexin monohydrate (From Allergy Hives Verified 01/18/24 00:32 Keflex) diphenhydramine HCl (From Allergy Hives Verified 01/18/24 00:32 Benadryl) Surgical History H/O melanoma excision Hx of hernia repair History of incisional hernia repair S/P laparoscopic cholecystectomy Hx of tonsillectomy History of hysterectomy Social History Smoking Status: Current every day smoker tobacco type: cigarettes ROS ROS ED Constitutional Constitutional ED: Denies chills or fever(s) Eyes Eyes: Denies change in vision or diplopia ENT ENT ED: Denies rhinorrhea or sore throat Cardiovascular Cardiovascular: Denies chest pain or palpitations Respiratory/Chest Respiratory/Chest: Denies cough or dyspnea Gastrointestinal Gastrointestinal: Reports nausea; Denies abdominal pain, diarrhea or vomiting Genitourinary Genitourinary ED: Denies dysuria or hematuria Musculoskeletal Musculoskeletal: Denies back pain or neck pain Integumentary Denies abscess or rash Neurologic Neurologic: Reports as per HPI, abnormal speech, paresthesias and weakness; Denies headache(s) EXAM Physical Exam Const Vital Signs: 01/21/24 18:19 01/21/24 18:19 01/21/24 18:22 Temperature 97.5 F L Temperature Source Oral Pulse Rate 100 80 Respiratory Rate 25 H 16 Respiratory Pattern Blood Pressure 138/88 H 143/97 H Blood Pressure Mean 104 112 Pulse Ox 100 98 Oxygen Delivery Method Room Air Room Air Room Air 01/21/24 18:43 01/21/24 18:49 01/21/24 19:14 Temperature 97.5 F L Temperature Source Pulse Rate 104 H 99 Respiratory Rate 18 18 Respiratory Pattern Normal Blood Pressure 157/108 H 157/88 H Blood Pressure Mean 124 111 Pulse Ox 98 92 Oxygen Delivery Method Room Air 01/21/24 19:19 01/21/24 19:30 Temperature Temperature Source Pulse Rate 94 92 Respiratory Rate 18 16 Respiratory Pattern Blood Pressure 131/101 H 131/101 H Blood Pressure Mean 111 111 Pulse Ox 98 98 Oxygen Delivery Method Room Air Room Air Positive well nourished and well developed General Appearance ED: well developed and NAD HEENT Reports moist mucous membranes normocephalic and atraumatic Eyes PERRL and EOMs intact bilaterally Neck full ROM and supple Resp normal respiratory effort and clear to auscultation bilaterally Cardio regular rate, regular rhythm and no murmurs GI non-tender and non-distended Auscultation: normoactive bowel sounds Palpation: soft Back/Spine no CVA tenderness General Back: other FROM Extremity normal to inspection General Extremety ED: Negative for edema, pulses abnormal or tenderness General Extremity: Negative for edema or pulses abnormal Neuro oriented x3 and CN's II-XII intact bilaterally Neuro Narrative: See NIHSS below. While sitting she appears to have some truncal ataxia. There is abnormal bilateral [id number] dysmetria out of proportion for her weakness. She is fairly symmetrically weak in all 4 extremities, she states this is acutely abnormal on her right which was normal strength and sensation when she was admitted to the hospital. She has some mild aphasia. Sensorium / Orientation: awake and alert Psych Mood & Affect: anxious Skin no rashes or lesions noted and no wounds NIHSS NIHSS Initial: 1a Level of Consciousness: 0 1b LOC Questions (Score 2 if aphasic/stupor): 0 1c LOC Commands (Only score 1st attempt): 0 2 Best Gaze (If aphasic, use reflexive mvmts.): 0 3 Visual: 0 4 Facial Palsy: 0 5 Motor Arm Right (UN = amputation/fusion): 1 5 Motor Arm Left: 1 6 Motor Leg Right: 1 6 Motor Leg Left: 1 7 Limb ataxia (Only + if out of proportion): 2 8 Sensory (Aphasia/stupor=0 or 1, coma=2): 1 9 Best Language: 1 10 Dysarthria (mute, coma=2, intubated=UN): 1 11 Extinction and Inattention (only scored if +): 0 Total Score: 9 MDM MDM MDM Narrative Medical decision making narrative: Since patient states she was just released from the hospital with a prior stroke I reviewed some records but she was not here. I reviewed some limited available records in [facility], she was at [facility] and had an MRI showing a right basal ganglier infarct. This is a relative contraindication for thrombolytics at this time. We did call stroke alert center directly to CT, I reviewed the images, my interpretation she has no hemorrhage. Radiology in agreement. Per radiologist, she has what appears to be an acute right basal ganglier infarct, however I alerted them that her MRI from several days ago showed this so it is subacute and not causing the patient's current acute symptoms. I discussed with Dr. Meraz stroke neurology evaluated the patient at the bedside via telemedicine. We both agree that the risks of bleeding from thrombolytics given her recent acute ischemic infarcts outweigh the potential benefits since her right-sided symptoms are relatively mild. Discussed this with the patient she is in agreement. Her CTA is negative I received a call from the radiologist regarding this at 1845. I reviewed the images and the report which I agree with. Patient is already on aspirin and clopidogrel since her recent stroke, neurology for now and they will consult on the patient in the hospital. Recommends to continue this plan will be for admission further workup. Spoke with hospitalist who spoke with the patient and then the patient decided to leave AGAINST MEDICAL ADVICE. I went to talk with her about this and she changed her mind and decided to stay. Social work was in speak with the patient as well. History & Record Review Additional record(s) reviewed:: Prior inpatient record (Outside hospital [facility]; MRI showing right basal ganglia infarct; echo showing no PFO) Lab Data Attestation: I reviewed the patient's lab results. Labs: Laboratory Results - last 24 hr 01/21/24 01/21/24 18:20 18:33 WBC 10.9 RBC 4.44 Hgb 13.4 Hct 40.2 MCV 90.5 MCH 30.2 MCHC 33.3 RDW Std Deviation 42.4 RDW Coeff of Pérez 12.7 Plt Count 332 MPV 9.8 Immature Gran % (Auto) 0.400 Neut % (Auto) 59.6 Lymph % (Auto) 30.1 Randolph % (Auto) 6.4 Eos % (Auto) 2.8 Baso % (Auto) 0.7 Absolute Neuts (auto) 6.5 Absolute Lymphs (auto) 3.27 Nucleated RBC % 0 PT 12.6 INR 0.9 APTT 26.1 Sodium 142 Potassium 3.4 L Chloride 108 H Carbon Dioxide 28.0 Anion Gap 6 BUN 8 Creatinine 0.64 Estim Creat Clear Calc 101.73 Est GFR (MDRD) Af Amer 128 Est GFR (MDRD) Non-Af 106 BUN/Creatinine Ratio 12.6 Glucose 115 H Calcium 8.6 Troponin I High Sens 10 POC Glucose 98 Radiography Diagnostic Testing: Clinical Impression(s) from Imaging Studies Brain CT 01/21/24 18:19 IMPRESSION: There is a focus of low-density in the right basal ganglia. This is concerning for of an acute ischemic infarction. Electronically Signed: Watson Madrid MD at 18:33 EST , ADDENDUM: 01/21/24 0273 IMPRESSION: There is a focus of low-density in the right basal ganglia. This is concerning for of an acute ischemic infarction. N.B. : The above Results were Read Back by Watson Madrid MD to Armen Gill MD, and understanding confirmed on 01/21/2024 18:38:43 (ET). Electronically Signed: Watson Madrid MD at 18:33 EST , Head/Neck CTA 01/21/24 18:19 IMPRESSION: Normal bilateral cervical carotid and vertebral arteries. ALL ABOVE CRITERIA BY NASCET. Electronically Signed: Watson Madrid MD at 18:43 EST , ADDENDUM: 01/21/24 1853 IMPRESSION: Normal bilateral cervical carotid and vertebral arteries. ALL ABOVE CRITERIA BY NASCET. N.B. : The above Results were Read Back by Watson Madrid MD to Armen Gill MD, and understanding confirmed on 01/21/2024 18:46:16 (ET). Electronically Signed: Watson Madrid MD at 18:43 EST , Chest X-Ray 01/21/24 18:48 IMPRESSION: No radiographic evidence of acute cardiopulmonary disease. Electronically Signed: Watson Madrid MD at 19:00 EST , 1 view chest x-ray on my interpretation normal Rhythm Strip Rhythm Strip: Sinus Tach Rate: 102 Ectopy: None EKG Initial EKG: Attestation: I personally reviewed and interpreted this EKG as follows: Interpretation: No Acute Injury Pattern and Sinus Tachycardia Comments: Nml axis & intervals; nml EKG Management Discussion w/another healthcare provider: [facility] Hospitalist, Gang Investigator (david stroke neuro), Radiologist and scrap metal processing worker/Case management Stroke Documentation Questions Stroke Team Activated: Yes Was Patient considered for Endovascular Intervention?: No-CTA negative, determined not to be an endovascular candidate IV Thrombolytic Administered: No (See above) No contraindications from thrombolytic administration: No Critical Care Time Critical Care Time: Yes Critical care time (excluding procedures): 30-74 minutes (38 min), Including time spent:, Discussing w/Patient &/or Family/Jewel Gauger, Discussing w/Consultants, Arranging Admission or Transfer and Performing Direct Patient Care at Bedside Discharge Plan Dx/Rx/DC Orders Clinical Impression: Acute ischemic stroke Disposition Disposition: Acute Care Hospital [facility]
[2024-01-21 18:36] LABS: Absolute Lymphocyte Count 3.27 X10^3/uL (0.83-4.51); Absolute Neutrophil Count 6.5 X10^3/uL (2.0-7.7); Basophil# 0.08 X10^3/uL; Basophil% 0.7 % (0-1); Eosinophils% 2.8 % (0-5); Hematocrit 40.2 % (37-47); Hemoglobin 13.4 g/dL (12.0-15.0); Lymphocyte # 3.27 X10^3/ul (0.83-4.51); Lymphocyte % 30.1 % (19-41); Mean Corp Hgb Conc 33.3 g/dL (32-36); Mean Corpuscular Hgb 30.2 pg (27.0-32.0); Mean Corpuscular Volume 90.5 fL (81-99); Mean Platelet Vol. 9.8 fl (6.2-12.0); Monocyte% 6.4 % (0-10); NRBC Flagged by Analyzer 0 % (0-5); Neutrophil # 6.48 X10^3/uL (2.7-7.7); Neutrophil % 59.6 % (47-70); Platelet Count 332 K/mm3 (150-450); RBC Distribution Width CV 12.7 % (11.6-14.6); RBC Distribution Width SD 42.4 fl (35.1-43.9); Red Blood Count 4.44 M/mm3 (4.2-5.4); White Blood Count 10.9 K/mm3 (4.4-11.0)
--- NOTE | 2024-01-21 18:40 | CASEMGMT ---
Care Management Face to Face with patient for initial transition planning/care coordination assessment.? This senior grant writer introduced self and role at [facility]. Patient lying in bed, alert and oriented. Patient willing to participate in assessment and is able to answer all questions appropriately.? Patient presented with some difficulty in talking as patient reported still being in pain with a recent jaw procedure that was done. Care providers, pharmacy, and demographics verified. Admitting Diagnosis: Weakness/Stroke Alert Other diagnosis history: Stroke, Melanoma, Gastric reflux, Smoker, History of stress test, Migraines, Anxiety, Depression and GERD. PCP: Dr. Mera Victor Specialists: Patient is not currently established with any specialists but is in need of getting established. Preferred Pharmacy: [facility] in [place]. Insurance: None. Self-Pay.? Patient used to be on Medicaid however stated she lost coverage in November and wasn?t able ?to recall why.? Face Man provided patient?s daughter Malka with written instructions on how to apply for Medicaid and also encouraged patient or Malka to call the number provided for Medicaid to see if patient can simply get re-instated instead of having to completely re-apply which Makla stated she would do. Prescription Benefit:? None at this time but needed. Living Will/HPOA: Not currently in place but is requesting assistance in getting established while in the hospital. LNOK: Patient is . Patient may have additional children but mentioned only two during the assessment, Malka and Roberto. Patient stated both of her parents are living as well as a brother and an aunt who all live next door to patient and were described as strong supports. Living Arrangements: Patient?s daughter Roberto, age 22 and Roberto?s son, Len, age 2 lives with patient however Patient and Roberto got into a verbal altercation on this date and patient reported Roberto and Roberto?s son will be moving out. Transportation: Patient has a food mobile driver?s license and a working vehicle to get her to and from where she needs to go. DME: Patient currently has a walker and a rollator. No other DME and no outstanding needs identified at this time. HHC: None at this time. Patient reported her daughter Malka helps her with everything she needs and was also described as a strong support. SNF/Rehab: Patient denied any previous SNF or rehab stays and she will be forced to go to a SNF and does not want this under any circumstance.? Patient expressed a desire to return home when medically ready for discharge. Community Resources: None involved at this time. Behavioral Health History:? Patient denied any mental health history or involvement with counseling however a review of records lists a history of anxiety and depression. ? Patient goals: Patient wishes to discharge home and denied a need for home health at this time.? Patient just suffered a stroke on left side on 01/15/24 and was admitted to [facility].? Patient reported on 01/16 she yawned and ended up dislocating her jaw and had to come to [facility], be sedated twice and have her jaw set back in place twice.? Patient reported she is supposed to call someone to make an appointment to have surgery on her jaw so that two screws can be put in to keep jaw in place.? On 01/18, patient reported she was diagnosed with throat cancer. Patient?s grandson, (Malka?s son) is currently admitted at [facility] and is scheduled to have surgery on Monday for scoliosis.? Malka was frequently tearful and admitted to feeling overwhelmed. Patient may benefit from a referral for counseling, getting connected with an oncologist, getting connected with a surgeon for needed jaw surgery, and possible ERS device since patient may be living alone in the near future. ??CM to follow for discharge planning needs that may arise. Disposition Plan: Home when medically ready. Handoff to Care Management Team on acute floors who will follow for support and discharge planning as indicated. -Aurea Clarke, OUTSOLE CUTTER MACHINE, FOUNDRY HELPER
[2024-01-21 18:41] LABS: International Normalized Ratio 0.9; Partial Thromboplast Time 26.1 Seconds (24.1-36.2); Prothrombin Time (Protime)PT. 12.6 SECONDS (11.7-14.9)
--- NOTE | 2024-01-21 18:48 | RAD_ITS ---
EXAM: XR CHEST, 1 VIEW CLINICAL INDICATION: Neuro deficit, acute, stroke suspected TECHNIQUE: Frontal view of the chest. COMPARISON: No relevant prior studies available. FINDINGS: LUNGS AND PLEURAL SPACES: Unremarkable. No consolidation or edema. No pneumothorax. No effusion. HEART: Unremarkable. Cardiac silhouette not enlarged. MEDIASTINUM: Central airways and mediastinal contour are unremarkable. BONES/JOINTS: Unremarkable. No acute fracture. SOFT TISSUES: Unremarkable. RAD/Chest 1 View IMPRESSION: No radiographic evidence of acute cardiopulmonary disease. Electronically Signed: Watson Madrid MD at 19:00 EST ,
[2024-01-21 18:49] LABS: Anion Gap 6 (5-15); BUN 8 mg/dL (7-18); BUN/Creat Ratio 12.6 RATIO (10-20); Calcium,Total 8.6 mg/dL (8.5-10.1); Chloride 108 mmol/L (98-107); Creatinine, Serum 0.64 mg/dL (0.55-1.02); EST Glomerular Filtration Rate 106 mL/min (>60); Est Glom Filt Rate - Afr Amer 128 mL/min (>60); Estimated Creatinine Clearance 101.73 ml/min; Glucose 115 mg/dL (74-106); Potassium 3.4 mmol/L (3.5-5.1); Sodium Level 142 mmol/L (136-145); Troponin-I HS 10 pg/mL (3.0-54.0)
[2024-01-21 18:51] LABS: Bedside Glucose 98 mg/dL (74-106)
--- NOTE | 2024-01-21 19:22 | PCM.HOSP.N ---
Hospitalist Note Patient was seen today in the emergency room at [facility] at the request of emergency room physician Dr. Gill-she came in as a stroke alert today, she was experiencing right sided weakness after having an argument with her daughter at home. Patient was hospitalized approximately a week ago for a right basal ganglia stroke at another hospital. Patient states that she is supposed to be set up for outpatient rehab and see a neurologist for follow-up but she has not been contacted to have those appointments. Workup in the emergency room included a CT which showed what appeared to be an acute right basal ganglia stroke, this is most likely subacute in nature however based on her recent history. Patient's NIH stroke score was 7, CT of the head and neck did not show any large vessel occlusion. In talking with the patient and her other daughter who was in her room in the ER, the patient stated that she preferred to go home, I told her that if we were to admit her we would most likely get an MRI tomorrow but that her present medications including a statin, clopidogrel, and aspirin would not change. Patient had an echo in her recent workup at the hospital where she had been admitted last week, this echo was unremarkable. Patient understands the risks of going home but prefers to go home tonight. I also talked with her concerning smoking cessation, I urged her to use a nicotine patch and stop smoking. Patient understood this. I went over this with Dr. Gill who will talk with the patient.
--- NOTE | 2024-01-21 19:39 | PCM.HP.STD ---
HPI - General General Date of Admission: 01/21/24 Date of Service: 01/21/24 Chief Complaint: R sided weakness, recent CVA HPI Narrative The patient is a 48 y/o F w/ PMHx: Possible Asthma, Chronic migraines, HTN, HLD, GERD, Anxiety and Depression, recent discharge 01/17/2024 from [facility] with history of onset 01/16/2020 for left-sided numbness and weakness with associated imbalance with workup at outside facility with MRI brain demonstrating an acute lacunar infarct in the right basal ganglia, echocardiogram with no evidence of PFO with LVEF 55 to 60% with normal diastolic function, mild AV regurgitation, initiated on aspirin, statin, Plavix with plan for dual antiplatelet therapy for 21 days with transition following to single antiplatelet agent with encouraged follow-up with neurology given stroke and underlying history of migraines in addition to lumbar musculoskeletal discomfort right greater than left with some radiculopathy purported for her at that time additionally who now presents to the [facility] ED on 01/21/24 with history of onset right sided weakness and paresthesias to her hand with increased difficulty with her speech with aphasia prompting ED evaluation to be cautious in addition to reported migraine, similar to her usual, with ongoing aching pain with mild light and sound sensitivity but no nausea or emesis which she will occasionally have although she reports is currently improved but suspects it is related with fighting with her youngest daughter for the course of the day. In the ED initial NIH stroke scale score elevated to 9 with 1 right upper motor, 1 left upper motor, right leg motor, 1 left leg motor, limb ataxia 2, 1 sensory, 1 Best language, 1 dysarthria. In the ED workup included T97.5, heart rate 100, BP 130/88, respiratory rate 25, and a percent on room air with most recent repeat vitals heart rate 92, BP 131/101, respiratory rate 16, 99% on room air, CBC with WC 10.9, human 13.4, platelet 332 without marked shift, unremarkable coags, BMP with potassium 3.4 chloride 108, glucose 115, magnesium 1.7, troponin 10, CT the brain with a focus of low-density in the right basal ganglia consistent with recent findings consistent with a subacute ischemic infarct which was confirmed with records from outside facility, CTA head and neck with normal bilateral cervical carotid and vertebral arteries, chest x-ray with no acute cardiopulmonary findings, EKG with sinus tachycardia with no acute evidence of ischemia. Initially patient was resistant to staying and had requested discharge to home however following discussions with her family eventually decided to stay. Given recent history patient did have a telestroke consultation with upon their evaluation improvement of score to 3 for mild to moderate paresthesias ataxia also in the extremities. Upon hospitalist evaluation patient reports that she is consistent with her previous baseline with left-sided deficits unchanged from recent stroke but all right-sided symptoms have resolved. [facility]LY [facility] Medical History Stroke Skin cancer (melanoma) Wears dentures Gastric reflux Smoker History of stress test Migraine Anxiety Depression GERD (gastroesophageal reflux disease) Home Medications ?Medication ?Instructions ?Recorded ?Last Taken ?Type pantoprazole 40 mg tablet,delayed 40 mg PO DAILY #30 tabs 12/19/22 Unknown Rx release sucralfate 1 gram tablet 1 g PO QACHS #56 tabs 12/19/22 Unknown Rx albuterol sulfate 90 mcg/actuation 2 puff inhalation Q4H PRN 07/05/23 Unknown Rx aerosol inhaler shortness of breath or wheezing #8.5 grams aspirin 81 mg chewable tablet 1 tab PO DAILY 01/21/24 Unknown History atorvastatin 40 mg tablet 40 mg PO DAILY 01/21/24 Unknown History clopidogrel 75 mg tablet 75 mg PO DAILY 01/21/24 Unknown History Allergy/AdvReac Type Severity Reaction Status Date / Time bee venom protein (honey bee) Allergy Anaphylaxis Verified 01/18/24 00:32 cephalexin monohydrate (From Allergy Hives Verified 01/18/24 00:32 Keflex) diphenhydramine HCl (From Allergy Hives Verified 01/18/24 00:32 Benadryl) Family History Mother Heart disease Hypertension CVA (cerebral vascular accident) Father Diabetes Cancer Throat CA, gastric CA, Colon CA. Surgical History H/O melanoma excision Hx of hernia repair History of incisional hernia repair S/P laparoscopic cholecystectomy Hx of tonsillectomy History of hysterectomy Social History household members: family Smoking Status: Current every day smoker tobacco type: cigarettes Smoking packs per day: 0.5 Smoking cigarettes per day: 10.0 alcohol intake: never substance use type: does not use ROS ROS Narrative Admission Review of Systems: CONSTITUTIONAL: No weight loss, fever, chills, + weakness or fatigue. HEENT: Eyes: No visual loss, blurred vision, double vision or yellow sclerae. Ears, Nose, Throat: No hearing loss, sneezing, congestion, runny nose or sore throat. SKIN: No rash or itching, lesions, wounds. CARDIOVASCULAR: No chest pain, chest pressure or chest discomfort, palpitations, edema, orthopnea, syncopal events. RESPIRATORY: No shortness of breath, cough or sputum, wheezing, hemoptysis. GASTROINTESTINAL: No anorexia, nausea, vomiting or diarrhea, abdominal pain, melena, BRBPR. GENITOURINARY: No dysuria, frequency, urgency or retention. NEUROLOGICAL: + Headache, mild light and sound sensitivity, left-sided weakness/paresthesias/ataxia, right-sided weakness, paresthesias, dysarthria. No h dizziness, lightheadedness, syncope, change in bowel or bladder control, seizure. MUSCULOSKELETAL: + muscle, back pain, joint pain or stiffness. HEMATOLOGIC: No anemia. + Easy bleeding/bruising. LYMPHATICS: No enlarged nodes. No history of splenectomy. PSYCHIATRIC: + History of anxiety and depression. ENDOCRINOLOGIC: No reports of sweating, cold or heat intolerance. No polyuria or polydipsia. ALLERGIES: + Possible underlying asthma but not confirmed. Vital Signs Vital Signs Vital Signs: 01/21/24 18:19 01/21/24 18:19 01/21/24 18:22 Temperature 97.5 F L Temperature Source Oral Pulse Rate 100 80 Respiratory Rate 25 H 16 Respiratory Pattern Blood Pressure 138/88 H 143/97 H Blood Pressure Mean 104 112 Pulse Ox 100 98 Oxygen Delivery Method Room Air Room Air Room Air 01/21/24 18:43 01/21/24 18:49 01/21/24 19:14 Temperature 97.5 F L Temperature Source Pulse Rate 104 H 99 Respiratory Rate 18 18 Respiratory Pattern Normal Blood Pressure 157/108 H 157/88 H Blood Pressure Mean 124 111 Pulse Ox 98 92 Oxygen Delivery Method Room Air Weight Weight: 144 lb 13.499 oz Body Mass Index (BMI) 23.3 Physical Exam Narrative Physical Examination: General: Awake, alert, oriented x 3 and cooperative, seated upright in the bed in no apparent distress, notes feeling at her baseline now with stable left-sided deficits unchanged. Skin: Normal color, normal turgor, no icterus, no cyanosis. HEENT: AT/NC, EOMI, PERRLA, mildly dry MM, no carotid bruits or JVD noted. Lungs: Diminished, greater bases, appropriate effort, no rales, ronchi or wheezing. Heart: Regular rate and rhythm; no gallop, rub audible. Abdomen: Soft, NTTP, ND, appreciated normal BS, no HSM. Extremities: No cyanosis, no clubbing, no marked peripheral edema. Neurological: Patient awake, alert, oriented as noted, cognitive function intact; pupils equally reactive to light and accommodation, cranial nerves grossly normal, moving all 4 extremities, patient currently with stable left-sided paresthesias, ataxia, mild weakness but no drift noted, equivocal Babinski, right-sided previous complaints resolved, does report having radicular discomfort down her right leg with pain reproducible with palpation of the right lumbar paraspinous region. Psychiatric: Affect appears mildly anxious, notes feeling better, no acute evidence of depressive feelings but does have underlying history. Results Lab / Micro Data 01/21/24 18:20 01/21/24 18:20 Labs: Laboratory Results - last 24 hr 01/21/24 18:20: WBC 10.9, RBC 4.44, Hgb 13.4, Hct 40.2, MCV 90.5, MCH 30.2, MCHC 33.3, RDW Std Deviation 42.4, RDW Coeff of Pérez 12.7, Plt Count 332, MPV 9.8, Immature Gran % (Auto) 0.400, Neut % (Auto) 59.6, Lymph % (Auto) 30.1, [place] % (Auto) 6.4, Eos % (Auto) 2.8, Baso % (Auto) 0.7, Absolute Neuts (auto) 6.5, Absolute Lymphs (auto) 3.27, Nucleated RBC % 0, PT 12.6, INR 0.9, APTT 26.1, Sodium 142, Potassium 3.4 L, Chloride 108 H, Carbon Dioxide 28.0, Anion Gap 6, BUN 8, Creatinine 0.64, Estim Creat Clear Calc 101.73, Est GFR (MDRD) Af Amer 128, Est GFR (MDRD) Non-Af 106, BUN/Creatinine Ratio 12.6, Glucose 115 H, Calcium 8.6, Troponin I High Sens 10 01/21/24 18:33: POC Glucose 98 Rhythm Strip Rhythm Strip: Sinus Tach Rate: 102 Ectopy: None Imaging Radiology Impression Brain CT 01/21/24 18:19 IMPRESSION: There is a focus of low-density in the right basal ganglia. This is concerning for of an acute ischemic infarction. Electronically Signed: Watson Madrid MD at 18:33 EST , ADDENDUM: 01/21/24 1845 IMPRESSION: There is a focus of low-density in the right basal ganglia. This is concerning for of an acute ischemic infarction. N.B. : The above Results were Read Back by Watson Madrid MD to Armen Gill MD, and understanding confirmed on 01/21/2024 18:38:43 (ET). Electronically Signed: Watson Madrid MD at 18:33 EST , Head/Neck CTA 01/21/24 18:19 IMPRESSION: Normal bilateral cervical carotid and vertebral arteries. ALL ABOVE CRITERIA BY NASCET. Electronically Signed: Watson Madrid MD at 18:43 EST , ADDENDUM: 01/21/24 1853 IMPRESSION: Normal bilateral cervical carotid and vertebral arteries. ALL ABOVE CRITERIA BY NASCET. N.B. : The above Results were Read Back by Watson Madrid MD to Armen Gill MD, and understanding confirmed on 01/21/2024 18:46:16 (ET). Electronically Signed: Watson Madrid MD at 18:43 EST , Chest X-Ray 01/21/24 18:48 IMPRESSION: No radiographic evidence of acute cardiopulmonary disease. Electronically Signed: Watson Madrid MD at 19:00 EST , Assessment & Plan Assessment/Plan (1) Paresthesias: PLAN: Plan The patient is a 48 y/o F w/ PMHx: Possible Asthma, Chronic migraines, HTN, HLD, GERD, Anxiety and Depression, recent discharge 01/17/2024 from [facility] with history of onset 01/16/2020 for left-sided numbness and weakness with associated imbalance with workup at outside facility with MRI brain demonstrating an acute lacunar infarct in the right basal ganglia, echocardiogram with no evidence of PFO with LVEF 55 to 60% with normal diastolic function, mild AV regurgitation, initiated on aspirin, statin, Plavix with plan for dual antiplatelet therapy for 21 days with transition following to single antiplatelet agent with encouraged follow-up with neurology given stroke and underlying history of migraines in addition to lumbar musculoskeletal discomfort right greater than left with some radiculopathy purported for her at that time additionally who now presents to the [facility] ED on 01/21/24 with history of onset right sided weakness and paresthesias to her hand with increased difficulty with her speech with aphasia prompting ED evaluation to be cautious. #1. Right sided paresthesias, ataxia, dysarthria concerning for CVA with history of recent subacute lacunar infarct in the right basal ganglia with left-sided symptoms with underlying history of note of chronic migraines, certainly could be potential complex: Will admit to PCU, will obtain MRI Brain, will request continue neurology evaluation, PT/OT/Speech/Nutrition evaluation per protocol. Will allow permissive HTN, maintain on asa/plavix, statin, maintain on fall and aspiration cautions. Magnesium normal. Patient did have recent workup therefore will defer additional repeat labs/echo as this was recently performed. If MRI of the brain shows only findings from recent stroke certainly could have a component of complex migraine but will await neurology input and MRI. #2. Hypertension: Noted history, per most recent discharge medication list does not appear to have been placed on antihypertensive medication, currently continue permissive hypertension with as needed agents per stroke protocol and add once clinically appropriate if blood pressure above goal. #3. Hyperlipidemia: We will continue patient on statin therapy although given age certainly could consider increasing high dose. #4. Anxiety and depression: Noted history, not currently on any regimen but does appear high anxiety, certainly could consider outpatient further evaluation and regimen if appropriate. #5. Possible Underlying Asthma: Per review of most recent pulmonary note 07/05/2023 patient possibly with underlying asthma, will maintain on ATC budesonide, PRN albuterol, HOB, IS parameters. #6. Lumbar back discomfort, suspect musculoskeletal with mild radicular symptoms: Discussed that possibly patient habit of using weights on the left lower extremity while doing her exercises per her daughter's insistence to improve her neurological symptoms has caused some strain to the right lumbar back and encouraged potentially holding off on this aggressive activity but continue to do her routine exercises about the weight, encourage continued heating pads/ice depending on what seems to help her symptoms, Tylenol as needed, will trial gabapentin low-dose x 1. #8. Tobacco Abuse: Encouraged cessation, inpatient consultation per RT, NR if desired. #9. GERD: We will continue patient on PPI. #10. DVT prophylaxis: Lovenox. #11. CODE status: Full Code status. Charges/Coding Visit Charges Inpatient E&M: 23832 Init Hosp L3
[2024-01-21 19:59] LABS: Magnesium 1.7 mg/dL (1.6-2.6)
[2024-01-21] MEDS: 0.9% Normal Saline (1000mL) 1,000 ML 100 ML IV (20:50)
[2024-01-21] MEDS: 0.9% Saline Lock 10 ML Syringe IV (20:51)
[2024-01-21] MEDS: Gabapentin 100 MG Capsule PO (21:04)
[2024-01-21] MEDS: Atorvastatin Calcium 40 MG Tablet PO (21:05)
[2024-01-21] MEDS: Sucralfate 1 GM Tablet PO (21:05)
[2024-01-21] MEDS: Potassium Chloride Oral Tablet 20 MEQ 40 MEQ PO (21:15)
[2024-01-21] MEDS: MELATONIN 3 MG TABLET PO (21:21)
[2024-01-22 00:15] VITALS: BP 114/83; PULSE 74; RESP 16; TEMP 36.4; O2SAT 96
[2024-01-22 01:20] VITALS: BMI 23.7
[2024-01-22 04:15] VITALS: BP 121/84; PULSE 73; RESP 14; TEMP 37; O2SAT 96
[2024-01-22 05:56] VITALS: BMI 23.7
[2024-01-22] MEDS: Sucralfate 1 GM Tablet PO ×2 (06:22→11:18)
[2024-01-22] MEDS: Acetaminophen 325 MG Tablet 650 MG PO (06:24)
[2024-01-22 06:38] LABS: Absolute Lymphocyte Count 2.03 X10^3/uL (0.83-4.51); Absolute Neutrophil Count 5.2 X10^3/uL (2.0-7.7); Basophil# 0.08 X10^3/uL; Eosinophil# 0.25 X10^3/uL; Hematocrit 37.2 % (37-47); Hemoglobin 12.3 g/dL (12.0-15.0); Lymphocyte # 2.03 X10^3/ul (0.83-4.51); Lymphocyte % 24.5 % (19-41); Mean Corp Hgb Conc 33.1 g/dL (32-36); Mean Corpuscular Hgb 30.3 pg (27.0-32.0); Mean Corpuscular Volume 91.6 fL (81-99); Monocyte# 0.71 X10^3/uL; Monocyte% 8.6 % (0-10); NRBC Flagged by Analyzer 0 % (0-5); Neutrophil # 5.18 X10^3/uL (2.7-7.7); Neutrophil % 62.5 % (47-70); Platelet Count 281 K/mm3 (150-450); RBC Distribution Width CV 12.8 % (11.6-14.6); RBC Distribution Width SD 42.8 fl (35.1-43.9); Red Blood Count 4.06 M/mm3 (4.2-5.4); White Blood Count 8.3 K/mm3 (4.4-11.0)
[2024-01-22 07:13] LABS: ALB/GLOB Ratio 1.1 RATIO (0.9-2.4); AST(SGOT) 10 U/L (15-37); Alanine Aminotransfer ALT/SGPT 15 U/L (13-56); Albumin, Serum 2.9 g/dL (3.2-5.0); Alkaline Phosphatase 94 U/L (45-117); Anion Gap 3 (5-15); BUN 6 mg/dL (7-18); BUN/Creat Ratio 13.4 RATIO (10-20); Calcium,Total 8.6 mg/dL (8.5-10.1); Chloride 115 mmol/L (98-107); Creatinine, Serum 0.45 mg/dL (0.55-1.02); EST Glomerular Filtration Rate 160 mL/min (>60); Est Glom Filt Rate - Afr Amer 193 mL/min (>60); Estimated Creatinine Clearance 144.68 ml/min; Globulin 2.7 g/dL (2.2-4.2); Glucose 94 mg/dL (74-106); Protein, Total 5.6 g/dL (6.4-8.2); Sodium Level 142 mmol/L (136-145)
[2024-01-22 08:15] VITALS: BP 125/88; PULSE 87; RESP 18; TEMP 36.8; O2SAT 97
[2024-01-22] MEDS: Aspirin 81 MG TAB.CHEW PO (08:24)
[2024-01-22] MEDS: Clopidogrel Bisulfate 75 MG Tablet PO (08:24)
[2024-01-22] MEDS: 0.9% Saline Lock 10 ML Syringe IV (08:24)
[2024-01-22] MEDS: Enoxaparin 40 MG/0.4 ML Syringe SC (08:24)
[2024-01-22] MEDS: Pantoprazole Sodium 40 MG Tablet PO (08:24)
--- NOTE | 2024-01-22 09:30 | MRI_ITS ---
STUDY: MRI BRAIN WITHOUT CONTRAST REASON FOR EXAM: Female, 48 years old. recent stroke with residual left weakness,,now has rt side weakness, off balance, speech change CVA TECHNIQUE: Standardized multiplanar fat and water weighted pulse sequences were obtained. COMPARISON: Head CT dated January 21, 2024.. FINDINGS: Redemonstration of a small acute infarct at the posterior superior aspect of the right thalamic lobe and internal capsule/lentiform nucleus junction. No additional acute infarcts are present. Normal size of the ventricles and extra-axial spaces for the patient''s age. There are multiple white matter hyperintensities, distributed throughout the deep white matter tracts of the cerebral hemispheres, consistent with moderate chronic white matter ischemic changes. Normal T2* images of the brain without demonstrated susceptibility artifact. There is no demonstrated hemosiderin stain. Normal bilateral basal ganglia. Normal thalami. There is no extra-axial fluid accumulation. Normal flow voids within the major intracranial circulation suggesting patency by spin echo criteria. Normal sella turcica, pituitary gland, infundibular stalk, optic chiasm and hypothalamus. Normal tectal plate and pineal gland. Normal midbrain, brant and medulla. Normal cerebellum. Normal basal cisterns. Normal bilateral temporal bones. Normal bilateral internal auditory canals. No demonstrated orbital abnormality, within the constraints of a routine brain study. Normal visualized paranasal sinuses. Normal calvarium and skull base. Normal visualized soft tissue structures. Normal visualized upper cervical spine. MRI/Brain without Contrast IMPRESSION: 1. Redemonstration of a small acute infarct at the posterior superior aspect of the right thalamic lobe and internal capsule/lentiform nucleus junction. No additional acute infarcts are present. This finding is unchanged from the head CT dated January 21, 2024. Electronically Signed: Diogenes Martell MD at 10:41 EST ,
--- NOTE | 2024-01-22 12:18 | CON.PCM.NE_ITS ---
Assessment and Plan: Stroke Assessment/Plan JENNIFER MANDUJANO is a 48 F with a history of recent R basal ganglia stroke who presents for evaluation of transient R sided weakness and aphasia in setting of argument. Symptoms could suggest an stress-induced cause by they were focal and in light of recent stroke, would not rule out TIA. She is on maximal medical management and the appearance of her prior stroke is likely small vessel in etiology (HLD and smoking) but she is young and would rule out other causes as well. Cannot assume this is a complex migraine as she has frequent migraines and never had these symptoms before - Anti-platelet medication: continue Aspirin 81 mg daily +Plavix 75mg for 21 days (end at original date) - recommend VIC given this is second event - outpatient cardiac monitoring - 30 day holter monitor - reocmmend prescription for BP cuff at home and measuring BP twice a day - Occupational/ Physical therapy consults - NPO until swallow evaluation. IVF until able to take po - DVT prophylaxis with SCDs and heparin SQ - Vascular risk factor modification. The following are the recommended guidelines: LDL Goal < 70 Smoking Cessation Diabetes Management retirement blood pressure control should achieve <130/80 mmHg. BP management should aim to achieve intermediate contorl in a reasonable amount of time, taking into consideration the individual patient's requirements and characteristics. Weight Management: Goal for BMI is 18.5 -24.9 kg/m2 Alcohol: No more than 2 drinks/day for men or 1 drink/day for non- women - Promote lifestyle modification: weight control, physical activity, moderation of alcohol intake, moderate sodium intake. Followup with PCP in 1-2 weeks, and in Neurology clinic in 6-12 weeks HPI Consult Data Date of Consult: 01/22/24 HPI Narrative HPI Narrative: The patient is a 48 y/o F w/ PMHx: Possible Asthma, Chronic migraines, HTN, HLD, GERD, Anxiety and Depression, recent discharge 01/17/2024 from [facility] with history of onset 01/16/2020 for left-sided numbness and weakness with associated imbalance with workup at outside facility with MRI brain demonstrating an acute lacunar infarct in the right basal ganglia, echocardiogram with no evidence of PFO with LVEF 55 to 60% with normal diastolic function, mild AV regurgitation, initiated on aspirin, statin, Plavix with plan for dual antiplatelet therapy for 21 days with transition following to single antiplatelet agent with encouraged follow-up with neurology given stroke and underlying history of migraines in addition to lumbar musculoskeletal discomfort right greater than left with some radiculopathy purported for her at that time additionally who now presents to the [facility] ED on 01/21/24 with history of onset right sided weakness and paresthesias to her hand with increased difficulty with her speech with aphasia prompting ED evaluation to be cautious in addition to reported migraine, similar to her usual, with ongoing aching pain with mild light and sound sensitivity but no nausea or emesis which she will occasionally have although she reports is currently improved but suspects it is related with fighting with her youngest daughter for the course of the day. In the ED initial NIH stroke scale score elevated to 9 with 1 right upper motor, 1 left upper motor, right leg motor, 1 left leg motor, limb ataxia 2, 1 sensory, 1 Best language, 1 dysarthria. This time, symptoms started while arguing with her daughter, when she started having numbness and speech difficulties. Symptoms lasted less than 30 min at most, feels back to normal. Endorses taking the ASA/Plavix. Has a little headache. Does not normally have symptoms of numbness or aphasia with her migraines. She has been taking her antiplatelets at home, smokes 1 ppd. She does not have a BP cuff at home. [facility] Medical History Stroke Skin cancer (melanoma) Wears dentures Gastric reflux Smoker History of stress test Migraine Anxiety Depression GERD (gastroesophageal reflux disease) Home Medications ?Medication ?Instructions ?Recorded ?Last Taken ?Type pantoprazole 40 mg tablet,delayed 40 mg PO DAILY #30 tabs 12/19/22 Unknown Rx release sucralfate 1 gram tablet 1 g PO QACHS #56 tabs 12/19/22 Unknown Rx albuterol sulfate 90 mcg/actuation 2 puff inhalation Q4H PRN 07/05/23 Unknown Rx aerosol inhaler shortness of breath or wheezing #8.5 grams aspirin 81 mg chewable tablet 1 tab PO DAILY 01/21/24 Unknown History atorvastatin 40 mg tablet 40 mg PO DAILY 01/21/24 Unknown History clopidogrel 75 mg tablet 75 mg PO DAILY 01/21/24 Unknown History Allergy/AdvReac Type Severity Reaction Status Date / Time bee venom protein (honey bee) Allergy Anaphylaxis Verified 01/18/24 00:32 cephalexin monohydrate (From Allergy Hives Verified 01/18/24 00:32 Keflex) diphenhydramine HCl (From Allergy Hives Verified 01/18/24 00:32 Benadryl) Family History Mother Heart disease Hypertension CVA (cerebral vascular accident) Father Diabetes Cancer Throat CA, gastric CA, Colon CA. Surgical History H/O melanoma excision Hx of hernia repair History of incisional hernia repair S/P laparoscopic cholecystectomy Hx of tonsillectomy History of hysterectomy Social History household members: family Smoking Status: Current every day smoker tobacco type: cigarettes Smoking packs per day: 0.5 Smoking cigarettes per day: 10.0 alcohol intake: never substance use type: does not use Vital Signs Vital Signs Vital Signs: 01/21/24 18:19 01/21/24 18:19 01/21/24 18:22 Temperature 97.5 F L Temperature Source Oral Pulse Rate 100 80 Pulse Strength Respiratory Rate 25 H 16 Respiratory Effort Respiratory Depth Respiratory Pattern Blood Pressure 138/88 H 143/97 H Blood Pressure Mean 104 112 Blood Pressure Source Blood Pressure Position Blood Pressure Location Pulse Ox 100 98 Oxygen Delivery Method Room Air Room Air Room Air 01/21/24 18:43 01/21/24 18:49 01/21/24 19:14 Temperature 97.5 F L Temperature Source Pulse Rate 104 H 99 Pulse Strength Respiratory Rate 18 18 Respiratory Effort Respiratory Depth Respiratory Pattern Normal Blood Pressure 157/108 H 157/88 H Blood Pressure Mean 124 111 Blood Pressure Source Blood Pressure Position Blood Pressure Location Pulse Ox 98 92 Oxygen Delivery Method Room Air 01/21/24 19:19 01/21/24 19:30 01/21/24 19:47 Temperature Temperature Source Pulse Rate 94 92 92 Pulse Strength Respiratory Rate 18 16 16 Respiratory Effort Respiratory Depth Respiratory Pattern Blood Pressure 131/101 H 131/101 H 131/101 H Blood Pressure Mean 111 111 111 Blood Pressure Source Blood Pressure Position Blood Pressure Location Pulse Ox 98 98 99 Oxygen Delivery Method Room Air Room Air Room Air 01/21/24 21:00 01/21/24 22:00 01/21/24 22:00 Temperature 97.4 F L Temperature Source Temporal Pulse Rate 86 Pulse Strength Normal (2+) Respiratory Rate 16 Respiratory Effort Normal Non-Labored Respiratory Depth Normal Respiratory Pattern Normal Blood Pressure 131/102 H Blood Pressure Mean 111 Blood Pressure Source Monitor Blood Pressure Position Semi-Fowlers Blood Pressure Location Left Arm Pulse Ox 96 Oxygen Delivery Method Room Air Room Air 01/22/24 00:15 01/22/24 04:15 01/22/24 07:47 Temperature 97.5 F L 98.6 F Temperature Source Oral Oral Pulse Rate 74 73 Pulse Strength Normal (2+) Respiratory Rate 16 14 Respiratory Effort Respiratory Depth Respiratory Pattern Blood Pressure 114/83 H 121/84 H Blood Pressure Mean 93 96 Blood Pressure Source Monitor Monitor Blood Pressure Position Supine Supine Blood Pressure Location Left Arm Left Arm Pulse Ox 96 96 Oxygen Delivery Method Room Air Room Air 01/22/24 08:12 01/22/24 08:15 Temperature 98.2 F Temperature Source Temporal Pulse Rate 87 Pulse Strength Respiratory Rate 18 Respiratory Effort Normal Non-Labored Respiratory Depth Normal Respiratory Pattern Normal Blood Pressure 125/88 H Blood Pressure Mean 100 Blood Pressure Source Monitor Blood Pressure Position Semi-Fowlers Blood Pressure Location Left Arm Pulse Ox 97 Oxygen Delivery Method Room Air Room Air Weight Weight: 66.7 kg Body Mass Index (BMI) 23.7 EEG Results Procedure Details EEG Procedure Details: JENNIFER MANDUJANO is a 48 year old F with a past medical history of , who presents for evaluation of Electroencephalogram on DATE at TIME NIHSS NIHSS Nursing Documentation NIHSS Nursing Documentation: NIHSS: Ischemic Stroke/TIA Start: 01/21/24 20:08 Text: For PCU Patients: NIH and Neuro Check every 4 Status: Complete hours, PRN and with change in RN caregiver. Freq: Q4H Protocol: Activity Type Activity Date Activity User E-sign Co-sign Detail Recorded Client Recorded Date Recorded By Document 01/22/24 08:15 [email or web address] [id number] 01/22/24 08:16 [email or web address] 01/22/24 08:15 NIH Stroke Scale [NIHSS] A score of 0 is normal or asymptomatic . Total possible score is 42. Inpatient: RN or Physician to activate a stroke alert for onset of new stroke symptoms or with NIHSS increase >/= 3 points. Following change in neurological status, NIHSS will be performed per physician order or more frequently PRN. -1a. Level of Consciousness Alert; keenly responsive -1b. LOC Questions Answers BOTH questions correctly. -1c. LOC Commands Performs both tasks correctly . -2. Best Gaze Normal -3. Visual No visual loss -4. Facial Palsy Normal symmetrical movements -5a. Left Arm No drift; arm holds 90 (or 45 ) degrees for full 10 seconds -5b. Right Arm No drift; arm holds 90 (or 45 ) degrees for full 10 seconds -6a. Left Leg No drift; leg holds 30-degree position for full 5 seconds -6b. Right Leg No drift; leg holds 30-degree position for full 5 seconds -7. Limb Ataxia Absent -8. Sensory Mild-to- moderate sensory loss; -9. Best Language No aphasia; normal -10. Dysarthria Normal -11. Extinction and Inattention No abnormality -Total 1 Query Text:A score of 0 is normal or asymptomatic. Total possible score is 42 . ED: Notify Physician for NIHSS increase by > / = 3 points. Inpatient: RN or Physician to activate a stroke alert for NIHSS increase of > / = 3 points. Coma Scale [Assess] -Eye Opening Spontaneous -Motor Obeys Commands -Verbal Oriented [Total] -Coma Scale Total 15 NIHSS 1a. Level of Consciousness: Alert; keenly responsive 1b. LOC Questions: Answers BOTH questions correctly. 1c. LOC Commands: Performs both tasks correctly. 2. Best Gaze: Normal 3. Visual: No visual loss 4. Facial Palsy: Minor paralysis (flattened nasolabial fold, asymmetry on smiling) 5a. Left Arm: No drift; arm holds 90 (or 45) degrees for full 10 seconds 5b. Right Arm: No drift; arm holds 90 (or 45) degrees for full 10 seconds 6a. Left Leg: No drift; leg holds 30-degree position for full 5 seconds 6b. Right Leg: No drift; leg holds 30-degree position for full 5 seconds 7. Limb Ataxia: Present in 2 limbs 8. Sensory: [id number] sensory loss; 9. Best Language: No aphasia; normal 10. Dysarthria: Normal 11. Extinction and Inattention: No abnormality Total: 4 Lab / Micro Data 01/22/24 06:10 01/22/24 06:10 Labs: Laboratory Results - last 24 hr 01/21/24 18:20: WBC 10.9, RBC 4.44, Hgb 13.4, Hct 40.2, MCV 90.5, MCH 30.2, MCHC 33.3, RDW Std Deviation 42.4, RDW Coeff of Pérez 12.7, Plt Count 332, MPV 9.8, Immature Gran % (Auto) 0.400, Neut % (Auto) 59.6, Lymph % (Auto) 30.1, Gove % (Auto) 6.4, Eos % (Auto) 2.8, Baso % (Auto) 0.7, Absolute Neuts (auto) 6.5, Absolute Lymphs (auto) 3.27, Nucleated RBC % 0, PT 12.6, INR 0.9, APTT 26.1, Sodium 142, Potassium 3.4 L, Chloride 108 H, Carbon Dioxide 28.0, Anion Gap 6, BUN 8, Creatinine 0.64, Estim Creat Clear Calc 101.73, Est GFR (MDRD) Af Amer 128, Est GFR (MDRD) Non-Af 106, BUN/Creatinine Ratio 12.6, Glucose 115 H, Calcium 8.6, Magnesium 1.7, Troponin I High Sens 10 01/21/24 18:33: POC Glucose 98 01/22/24 06:10: WBC 8.3, RBC 4.06 L, Hgb 12.3, Hct 37.2, MCV 91.6, MCH 30.3, MCHC 33.1, RDW Std Deviation 42.8, RDW Coeff of Pérez 12.8, Plt Count 281, MPV 10.0, Immature Gran % (Auto) 0.400, Neut % (Auto) 62.5, Lymph % (Auto) 24.5, Gove % (Auto) 8.6, Eos % (Auto) 3.0, Baso % (Auto) 1.0, Absolute Neuts (auto) 5.2, Absolute Lymphs (auto) 2.03, Nucleated RBC % 0, Sodium 142, Potassium 4.0, Chloride 115 H, Carbon Dioxide 25.0, Anion Gap 3 L, BUN 6 L, Creatinine 0.45 L, Estim Creat Clear Calc 144.68, Est GFR (MDRD) Af Amer 193, Est GFR (MDRD) Non-Af 160, BUN/Creatinine Ratio 13.4, Glucose 94, Calcium 8.6, Total Bilirubin 0.40, AST 10 L, ALT 15, Alkaline Phosphatase 94, Total Protein 5.6 L, Albumin 2.9 L, Globulin 2.7, Albumin/Globulin Ratio 1.1 Rhythm Strip Rhythm Strip: Sinus Tach Rate: 102 Ectopy: None Imaging Radiology Impression Brain CT 01/21/24 18:19 IMPRESSION: There is a focus of low-density in the right basal ganglia. This is concerning for of an acute ischemic infarction. Electronically Signed: Watson Madrid MD at 18:33 EST , ADDENDUM: 01/21/24 1845 IMPRESSION: There is a focus of low-density in the right basal ganglia. This is concerning for of an acute ischemic infarction. N.B. : The above Results were Read Back by Watson Madrid MD to Armen Gill MD, and understanding confirmed on 01/21/2024 18:38:43 (ET). Electronically Signed: Watson Madrid MD at 18:33 EST , Head/Neck CTA 01/21/24 18:19 IMPRESSION: Normal bilateral cervical carotid and vertebral arteries. ALL ABOVE CRITERIA BY NASCET. Electronically Signed: Watson Madrid MD at 18:43 EST , ADDENDUM: 01/21/24 1853 IMPRESSION: Normal bilateral cervical carotid and vertebral arteries. ALL ABOVE CRITERIA BY NASCET. N.B. : The above Results were Read Back by Watson Madrid MD to Armen Gill MD, and understanding confirmed on 01/21/2024 18:46:16 (ET). Electronically Signed: Watson Madrid MD at 18:43 EST , Chest X-Ray 01/21/24 18:48 IMPRESSION: No radiographic evidence of acute cardiopulmonary disease. Electronically Signed: Watson Madrid MD at 19:00 EST , Brain MRI 01/22/24 09:30 IMPRESSION: 1. Redemonstration of a small acute infarct at the posterior superior aspect of the right thalamic lobe and internal capsule/lentiform nucleus junction. No additional acute infarcts are present. This finding is unchanged from the head CT dated January 21, 2024. Electronically Signed: Diogenes Martell MD at 10:41 EST , Active Medications Active Medications Active Medications: Current Medications Generic Name Dose Route Start Last Admin Trade Name Freq PRN Reason Stop Dose Admin Acetaminophen 650 mg 01/21/24 20:08 01/22/24 06:24 Acetaminophen 325 Mg Tablet PO 650 mg Q4H PRN PRN Administration Fever, pain 1-10 Al Hydroxide/Mg Hydroxide 30 ml 01/21/24 20:08 Mag Hydrox/Al Hydrox/Simeth 30 Ml Udc PO Q6H PRN PRN Gastric Burning Albuterol Sulfate 2.5 mg 01/21/24 20:08 Albuterol 2.5 Mg/3 Ml Vial.Neb. INHALATION Q2H PRN PRN Dyspnea, wheezing Aspirin 81 mg 01/22/24 08:00 01/22/24 08:24 Aspirin 81 Mg Tab.Chew PO 81 mg DAILYCM DIOGO Administration Atorvastatin Calcium 40 mg 01/21/24 22:00 01/21/24 21:05 Atorvastatin Calcium 40 Mg Tablet PO 40 mg QHS DIOGO Administration Budesonide 0.5 mg 01/21/24 20:08 Budesonide Respules 0.5 Mg/2 Ml Ampul.Neb. INHALATION BID.RT DIOGO Clopidogrel Bisulfate 75 mg 01/22/24 10:00 01/22/24 08:24 Clopidogrel Bisulfate 75 Mg Tablet PO 75 mg DAILY DIOGO Administration Enoxaparin Sodium 40 mg 01/22/24 10:00 01/22/24 08:24 Enoxaparin 40 Mg/0.4 Ml Syringe SC 40 mg DAILY DIOGO Administration Guaifenesin 20 ml 01/21/24 20:08 Guaifenesin 10 Ml Udc (200mg/10ml) PO Q4H PRN PRN COUGH Hydralazine HCl 5 mg 01/21/24 20:08 Hydralazine 20 Mg/Ml Vial IV 01/22/24 20:08 Q30M PRN maintain BP parameters with HR <60 Sodium Chloride 100 mls @ 15 mls/hr 01/21/24 20:15 IV .Q6H40M PRN Saline Flush Sodium Chloride 100 mls @ 15 mls/hr 01/21/24 20:15 IV .Q6H40M PRN Additional IVPB Infusion Labetalol HCl 10 - 20 mg 01/21/24 20:08 Labetalol (Prefilled) 20 Mg/4 Ml Vial IV 01/22/24 20:08 Q10M PRN PRN maintain BP parameters with HR >/=60 Lorazepam 0.5 - 1 mg 01/21/24 20:08 Lorazepam 0.5 Mg Tablet PO X1 PRN Anxiety/agitation w/ MRI Melatonin 3 mg 01/21/24 20:08 01/21/24 21:21 Melatonin 3 Mg Tablet PO 3 mg QHS PRN PRN Administration INSOMNIA Nicotine 14 mg 01/21/24 20:08 01/22/24 08:24 Nicotine 14 Mg Patch TD 14 mg DAILY DIOGO Administration Ondansetron HCl 4 mg 01/21/24 20:08 Ondansetron 4 Mg/2 Ml Vial IV Q8H PRN PRN NAUSEA/VOMITING Pantoprazole Sodium 40 mg 01/22/24 10:00 01/22/24 08:24 Pantoprazole Sodium 40 Mg Tablet PO 40 mg DAILY DIOGO Administration Prochlorperazine Edisylate 5 mg 01/21/24 20:08 Prochlorperazine 10 Mg/2 Ml Vial IV Q4H PRN PRN Breakthrough Nausea/Vomiting Senna/Docusate Sodium 2 tablet 01/21/24 20:08 Senna/Docusate Sodium 1 Tablet PO BID PRN PRN Constipation Sodium Chloride 10 - 40 ml 01/21/24 20:15 01/22/24 08:24 0.9% Saline Lock 10 Ml Syringe IV 10 ml UD PRN Administration SALINE FLUSH Sucralfate 1 gm 01/21/24 22:00 01/22/24 11:18 Sucralfate 1 Gm Tablet PO 1 gm 1HR_ACHS DIOGO Administration
--- NOTE | 2024-01-22 13:00 | CASEMGMT ---
LIDNA ROMERO updated that patient will need outpatient PT/OT/ST at discharge. LINDA ROMERO discussed outpatient therapy with patient and prefers to complete at [facility]. Patient had left AMA prior to discussing outpatient therapy with hospitalist. LINDA ROMERO reached out to hospitalist to see if she would still sign script for outpatient therapy, hospitalist agreeable. Script received and referral sent to [facility] with request to call patient to schedule appt.
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
--- NOTE | 2024-01-22 14:54 | CASEMGMT ---
SW completed a PHQ 9 with patient as she had a Stroke. Patient scored a 2 which indicates minimal depression. Patient was interested in counseling resources and [facility] Stroke support group. SW gave these resources to patient. Calli TORRES
--- NOTE | 2024-01-22 14:59 | CASEMGMT ---
Patient was interested in completing a Healthcare Power of Electrical Inspector and a Healthcare Living Will. SW assisted patient in completing documents. Copies were made and given to patient along with originals. A copy of each was also placed in patient's chart. Calli TORRES
== END 2024-01-22 14:27 | disposition left against medical advice (07) ==
LOC: ED 19:23 → PCU 20:54
PROVIDERS: Admitting Provider Family Medicine; Emergency Provider Emergency Medicine; PCP Family Medicine; Visit Provider Student in an Organized Health Care Education/Training Program
DX: R29.898 Other symptoms and signs involving the musculoskeletal system (principal); I69.354 Hemiplegia and hemiparesis following cerebral infarction affecting left non-dominant side; Z79.02 Long term (current) use of antithrombotics/antiplatelets; Z79.82 Long term (current) use of aspirin; R27.0 Ataxia, unspecified; F17.210 Nicotine dependence, cigarettes, uncomplicated; E78.5 Hyperlipidemia, unspecified; R47.9 Unspecified speech disturbances; K21.9 Gastro-esophageal reflux disease without esophagitis; Z79.899 Other long term (current) drug therapy; R29.709 NIHSS score 9; I10 Essential (primary) hypertension; R47.01 Aphasia; R20.2 Paresthesia of skin
CPT/HCPCS: 36415; 70450; 70496; 70498; 70551; 71045; 80048; 80053; 82962; 83735; 84484; 85025; 85610; 85730; 92523; 93005; 96360; 96361; 96372; 97162; 97166; 97802; 99221; 99285; Q9967; A4216; G0378

== ENCOUNTER → 2024-04-30 | Outpatient (CLI) | payer SELFPAY ==
[2024-04-30 10:50] LABS: International Normalized Ratio 0.9; Partial Thromboplast Time 26.1 Seconds (24.1-36.2); Prothrombin Time (Protime)PT. 12.7 SECONDS (11.7-14.9)
[2024-04-30 11:27] LABS: Erythrocyte Sedimentation Rate 3 mm/hr (0-30)
[2024-04-30 21:15] LABS: CRP < 3.00 mg/L (0.0-3.0)
[2024-05-01 13:08] LABS: ANTINUCLEAR ANTIBODIES DIRECT Negative (Negative)
[2024-05-06 15:08] LABS: Albumin 3.7 g/dL (2.9-4.4); Alpha-1-Globulins 0.3 g/dL (0.0-0.4); Alpha-2-Globulins 0.9 g/dL (0.4-1.0); Anti-Cardiolipin Ab, IgA, Qn < 9 APL U/mL (0-11); Anti-Cardiolipin Ab, IgG, Qn < 9 GPL U/mL (0-14); Anti-Cardiolipin Ab, IgM, Qn < 9 MPL U/mL (0-12); Anti-Thrombin 3 AG, Immunol 109 % (72-124); Antithrombin 3 Function 142 % (75-135); Gamma Globulin 0.7 g/dL (0.4-1.8); Immunoglobulin A 97 mg/dL (87-352); Immunoglobulin G 671 mg/dL (586-1602); Immunoglobulin M 71 mg/dL (26-217); PROEL- TOTAL PROTEIN 6.4 g/dL (6.0-8.5); Protein C, Functional 139 % (73-180); Protein S, Funtional 101 % (63-140); Thyroglobulin Antibody < 1.0 IU/mL (0.0-0.9); Thyroid Peroxidase AB 16 IU/mL (0-34)
== END | disposition home or self-care (01) ==
LOC: MTLAB 09:04
PROVIDERS: PCP Family Medicine
DX: G43.909 Migraine, unspecified, not intractable, without status migrainosus (principal); Z86.73 Personal history of transient ischemic attack (TIA), and cerebral infarction without residual deficits
CPT/HCPCS: 36415; 81240; 81241; 82784; 84165; 85300; 85301; 85303; 85306; 85610; 85652; 85730; 86038; 86140; 86147; 86225; 86235; 86334; 86376; 86800

== ENCOUNTER 2024-07-01 00:36 | Emergency (ER) | payer SELFPAY ==
[2024-07-01 00:36] VITALS: BP 136/99; PULSE 94; RESP 18; TEMP 36.6; O2SAT 100; BMI 23.1
[2024-07-01 00:39] VITALS: BP 136/99; PULSE 94; RESP 18; TEMP 36.6; O2SAT 100
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
[2024-07-01] MEDS: 0.9% Normal Saline (1000mL) 1,000 ML 999 ML IV (01:10)
[2024-07-01] MEDS: Ondansetron 4 MG/2 ML Vial IV (01:10)
[2024-07-01 01:17] LABS: Absolute Lymphocyte Count 3.51 X10^3/uL (0.83-4.51); Absolute Neutrophil Count 8.5 X10^3/uL (2.0-7.7); Basophil# 0.04 X10^3/uL; Basophil% 0.3 % (0-1); Eosinophil# 0.09 X10^3/uL; Eosinophils% 0.7 % (0-5); Hematocrit 39.3 % (37-47); Hemoglobin 13.3 g/dL (12.0-15.0); Lymphocyte # 3.51 X10^3/ul (0.83-4.51); Lymphocyte % 26.9 % (19-41); Mean Corp Hgb Conc 33.8 g/dL (32-36); Mean Corpuscular Hgb 30.8 pg (27.0-32.0); Mean Platelet Vol. 9.8 fl (6.2-12.0); Monocyte# 0.85 X10^3/uL; Monocyte% 6.5 % (0-10); NRBC Flagged by Analyzer 0 % (0-5); Neutrophil # 8.53 X10^3/uL (2.7-7.7); Neutrophil % 65.3 % (47-70); Platelet Count 304 K/mm3 (150-450); RBC Distribution Width CV 13.4 % (11.6-14.6); Red Blood Count 4.32 M/mm3 (4.2-5.4); White Blood Count 13.1 K/mm3 (4.4-11.0)
--- NOTE | 2024-07-01 01:30 | RAD_ITS ---
PROCEDURE: CHEST 1 VIEW (PORTABLE) 07/01/2024 REASON FOR EXAM: PNEUMONIA TECHNIQUE: Frontal view of the chest. COMPARISON: None available FINDINGS: The lungs appear clear. The pulmonary vascularity appears within limits. No pleural effusion. The cardiac and mediastinal contours appear within limits. Visualized osseous structures appear within limits. RAD/Chest 1 View (Portable) IMPRESSION: No evidence of acute disease. Reading Location: [id number]
[2024-07-01 01:43] VITALS: BP 130/87; PULSE 80; RESP 16; TEMP 36.6; O2SAT 98
[2024-07-01] MEDS: Ketorolac 30 MG/ML Syringe IV (02:01)
[2024-07-01 02:15] LABS: AST(SGOT) 27 U/L (<=31); Alanine Aminotransfer ALT/SGPT 18 U/L (<=34); Alkaline Phosphatase 123 U/L (35-104); Anion Gap 12 (5-15); BUN 3 mg/dL (4-19); BUN/Creat Ratio 4.3 RATIO (10-20); Bilirubin, Direct 0.13 mg/dL (0.00-0.30); Carbon Dioxide 23.6 mmol/L (21.0-32.0); Chloride 104 mmol/L (98-108); EST Glomerular Filtration Rate 111 (>60); Estimated Creatinine Clearance 108.51 ml/min (50-250); Globulin 2.1 g/dL (2.2-4.2); Glucose 103 mg/dL (70-99); Lipase 29 U/L (13-75); Potassium 3.6 mmol/L (3.3-5.1); Sodium Level 139 mmol/L (133-145); Total Bilirubin 0.28 mg/dL (0.00-1.30)
--- NOTE | 2024-07-01 02:21 | CT_ITS ---
PROCEDURE: ABDOMEN/PELVIS W IV CONT ONLY 07/01/2024 REASON FOR EXAM: ABDOMINAL PAIN TECHNIQUE: Abdomen and pelvis CT with intravenous contrast. Coronal and Sagittal reconstruction series were provided. PATIENT PREPARATION: Per protocol ORAL CONTRAST TYPE: None. CONTRAST: 99 cc Isovue 370 IV One or more dose reduction techniques were used (e.g., Automated exposure control, adjustment of the mA and/or kV according to patient size, use of iterative reconstruction technique. RADIATION DOSE SUMMARY: CTDlvol: 16.62 mGy DLP: 518.84 mGycm COMPARISON: None available FINDINGS: Dependent and basilar atelectasis. Appearance of mild hepatic steatosis. The liver, adrenal glands, kidneys, pancreas and spleen otherwise appear within limits. The gallbladder is not identified. Abdominal aorta appears within limits. No adenopathy. No bowel dilation or free air. Normal caliber appendix without secondary signs. The bladder appears within limits. Status post hysterectomy. Single apparent fallopian tube clip left pelvis. The visualized osseous structures appear within limits. CT/Abdomen/Pelvis W IV Cont ONLY IMPRESSION: No evidence of acute intra-abdominal process. Mild hepatic steatosis. Status post cholecystectomy and hysterectomy. Reading Location: [id number]
[2024-07-01 02:36] VITALS: BP 141/81; RESP 18; O2SAT 98
[2024-07-01 03:38] VITALS: BP 127/88; PULSE 83; RESP 18; TEMP 36.6; O2SAT 100
== END 2024-07-01 03:53 | disposition home or self-care (01) ==
PROVIDERS: Emergency Provider Emergency Medicine; PCP Family Medicine; Visit Provider Emergency Medicine
DX: R11.2 Nausea with vomiting, unspecified (principal); J44.9 Chronic obstructive pulmonary disease, unspecified; E78.5 Hyperlipidemia, unspecified; I10 Essential (primary) hypertension; R10.10 Upper abdominal pain, unspecified; Z90.49 Acquired absence of other specified parts of digestive tract; Z79.82 Long term (current) use of aspirin; Z79.899 Other long term (current) drug therapy; F32.A Depression, unspecified; K21.9 Gastro-esophageal reflux disease without esophagitis; Z90.710 Acquired absence of both cervix and uterus; F17.210 Nicotine dependence, cigarettes, uncomplicated
CPT/HCPCS: 71045; 74177; 80048; 80076; 83690; 85025; 96361; 96374; 96375; 99283; Q9967; A4216; J2405